=== PATIENT | female | born 1955 | race Hispanic/Latino ===

== ENCOUNTER 2018-12-02 16:11 | Emergency (ER) | payer BC, MEDICARE ==
[~2018-12-02] VITALS: Ht 154.9 cm; Wt 56.7 kg
[~2018-12-02 16:11] MED LIST: ACEBUTOLOL HCL200 MG PO; CALCIUM PO; IMMODIUM PO; LOVASTATIN20 MG PO; OMEGA 3 PO; Z FENOFIBRATE; Z.0.LOPRESSOR50 MG; Z.0.METFORMIN HCL500; Z.0.ZOCOR40 MG; Z.1.LISINOPRIL-HCT1; [UNRECOGNIZED DRUG - OTHER] PO
--- OUTSIDE RECORDS SUMMARY | 2018-12-02 16:14 | XMS REPORT ---
Author Author [facility] Address Unknown Phone Unavailable Care Team Providers Care Telephone Engineer Name Role Phone Unavailable Unavailable Problems This patient has no known problems. Allergies, Adverse Reactions, Alerts This patient has no known allergies or adverse reactions. Medications This patient has no known medications. Encounters Start Date/Time End Date/Time Encounter Type Admission Type Attending [facility] Facility Care Department Encounter ID 2018-08-03 00:00:00 2018-08-03 00:00:00 Outpatient [facility] [id number] 2018-07-27 00:00:00 2018-07-27 00:00:00 Outpatient [facility] [id number] 2018-02-25 09:01:56 2018-02-25 09:01:56 Outpatient [facility] [id number] 2018-02-09 14:26:06 2018-02-09 14:26:06 Outpatient [facility] [id number] 2018-02-09 00:00:00 2018-02-09 00:00:00 Outpatient [facility] [id number] 2018-02-02 00:00:00 2018-02-02 00:00:00 Outpatient [facility] [id number] 2018-02-02 00:00:00 2018-02-02 00:00:00 Outpatient [facility] [id number] 2018-01-29 08:40:30 2018-01-29 08:40:30 Outpatient [facility] [id number] 2018-01-29 08:32:52 2018-01-29 08:32:52 Outpatient [facility] [id number] 2018-01-16 00:00:00 2018-01-16 00:00:00 Outpatient [facility] [id number] 2018-01-15 15:21:09 2018-01-15 15:21:09 Outpatient [facility] [id number] 2017-12-15 00:00:00 2017-12-15 00:00:00 Outpatient [facility] [id number] 2017-11-10 13:41:38 2017-11-10 13:41:38 Outpatient [facility] [id number] 2017-11-10 13:06:06 2017-11-10 13:06:06 Outpatient [facility] [id number] 2017-11-03 00:00:00 2017-11-03 00:00:00 Outpatient [facility] [id number] 2017-10-21 10:11:07 2017-10-21 10:11:07 Outpatient [facility] [id number] 2017-10-13 11:08:36 2017-10-13 11:08:36 Outpatient [facility] [id number] 2017-10-13 00:00:00 2017-10-13 00:00:00 Outpatient [facility] [id number] 2017-09-17 07:56:22 2017-09-17 07:56:22 Outpatient [facility] [id number] 2017-08-04 00:00:00 2017-08-04 00:00:00 Outpatient [facility] [id number] 2017-08-04 00:00:00 2017-08-04 00:00:00 Outpatient [facility] [id number] 2017-06-20 10:49:19 2017-06-20 10:49:19 Outpatient [facility] [id number] 2017-06-10 13:16:09 2017-06-10 13:16:09 Outpatient [facility] [id number] 2017-06-10 11:07:07 2017-06-10 11:07:07 Outpatient [facility] [id number] 2017-06-10 09:26:28 2017-06-10 09:26:28 Outpatient [facility] [id number] 2017-03-05 10:47:42 2017-03-05 10:47:42 Outpatient [facility] [id number] 2017-02-27 14:56:48 2017-02-27 14:56:48 Outpatient [facility] [id number] 2017-02-25 00:00:00 2017-02-25 00:00:00 Outpatient [facility] [id number] 2017-02-21 09:27:51 2017-02-21 09:27:51 Outpatient [facility] [id number] 2017-02-03 13:42:51 2017-02-03 13:42:51 Outpatient [facility] [id number] 2017-02-03 11:42:48 2017-02-03 11:42:48 Outpatient [facility] [id number] 2017-01-22 10:13:04 2017-01-22 10:13:04 Outpatient [facility] [id number] 2017-01-21 15:00:46 2017-01-21 15:00:46 Outpatient [facility] [id number] 2017-01-20 00:00:00 2017-01-20 00:00:00 Outpatient [facility] [id number] 2017-01-15 00:00:00 2017-01-15 00:00:00 Outpatient [facility] [id number] 2017-01-06 00:00:00 2017-01-06 00:00:00 Outpatient [facility] [id number] 2017-01-03 00:00:00 2017-01-03 00:00:00 Outpatient [facility] [id number] 2016-12-25 00:00:00 2016-12-25 00:00:00 Outpatient [facility] [id number] 2016-12-19 09:37:47 2016-12-19 09:37:47 Outpatient [facility] [id number] 2016-12-05 09:49:32 2016-12-05 09:49:32 Outpatient [facility] [id number] 2016-11-21 09:43:14 2016-11-21 09:43:14 Outpatient [facility] [id number] 2016-11-19 13:22:25 2016-11-19 13:22:25 Outpatient [facility] [id number] 2016-11-12 13:42:26 2016-11-12 13:42:26 Outpatient [facility] [id number] 2016-11-06 08:30:13 2016-11-06 08:30:13 Outpatient [facility] [id number] 2016-11-05 10:00:29 2016-11-05 10:00:29 Outpatient [facility] [id number] 2016-10-31 08:50:43 2016-10-31 08:50:43 Outpatient [facility] [id number] 2016-10-24 13:21:02 2016-10-24 13:21:02 Outpatient [facility] [id number] 2016-10-23 15:09:57 2016-10-23 15:09:57 Outpatient [facility] [id number] 2016-10-23 13:57:05 2016-10-23 13:57:05 Outpatient [facility] [id number] 2016-10-07 18:21:52 2016-10-07 18:21:52 Emergency [facility] [id number] 2016-10-07 00:00:00 2016-10-07 00:00:00 Outpatient [facility] [id number] 2016-07-26 10:03:50 2016-07-26 10:03:50 Outpatient [facility] [id number] 2016-07-26 08:40:02 2016-07-26 08:40:02 Outpatient [facility] [id number] 2016-07-15 10:39:25 2016-07-15 10:39:25 Emergency [facility] [id number] 2016-07-02 13:00:51 2016-07-02 13:00:51 Outpatient [facility] [id number] 2016-07-02 10:19:21 2016-07-02 10:19:21 Outpatient [facility] [id number] 2016-07-02 09:24:48 2016-07-02 09:24:48 Outpatient [facility] [id number]
[2018-12-02] MEDS ORDERED: ASPIRIN 81 MG CHEW TAB PO ONE (18:00)
--- NOTE | 2018-12-02 18:32 | Diagnostic Imaging Report ---
EXAMINATION: CHEST SINGLE (NOT PORTABLE) INDICATION: ^ERMD ORDER ^[id number] ^1818 ^Y COMPARISON: 08/16/2007 FINDINGS: AP view TUBES and LINES: None. LUNGS: Lungs are well inflated. Lungs are clear. There is no evidence of pneumonia or pulmonary edema. PLEURA: No pleural effusion or pneumothorax. HEART AND MEDIASTINUM: The cardiomediastinal silhouette is unremarkable. BONES AND SOFT TISSUES: No acute osseous lesion. Soft tissues are unremarkable. UPPER ABDOMEN: No free air under the diaphragm. IMPRESSION: No acute thoracic abnormality. Signed by: Dr. Kenneth Madden MD on 12/02/2018 6:29 PM
[2018-12-02 18:46] LABS: BASOPHILS % 0.6 % (0.0-1.0); EOSINOPHILS # (AUTO) 0.3 (0.0-0.4); HEMATOCRIT 36.7 % (34.2-44.1); HEMOGLOBIN 12.2 g/dL (12.0-16.0); LYMPHOCYTES # (AUTO) 1.1 (1.0-3.2); LYMPHOCYTES % 22.9 % (18.0-39.1); MEAN CORPUSCULAR HGB CONC 33.2 g/dL (31-35); MEAN CORPUSCULAR VOLUME 93.1 fL (81-99); MONOCYTES # (AUTO) 0.5 (0.2-0.8); MONOCYTES % 10.3 % (4.4-11.3); NEUTROPHILS # (AUTO) 2.8 (2.1-6.9); NEUTROPHILS % 59.6 % (38.7-80.0); PLATELET COUNT 265 x10e3/uL (140-360); RED BLOOD COUNT 3.94 x10e6/uL (3.6-5.1); RED CELL DISTRIBUTION WIDTH 12.4 % (11.7-14.4)
[2018-12-02 18:52] LABS: BILIRUBIN,URINE NEGATIVE (NEGATIVE); CLARITY,URINE SL CLOUDY (CLEAR); COLOR,URINE YELLOW (YELLOW); KETONES,URINE NEGATIVE (NEGATIVE); LEUKOCYTE ESTERASE ,URINE TRACE (NEGATIVE); NITRITE,URINE NEGATIVE (NEGATIVE); PROTEIN,URINE DIPSTICK NEGATIVE (NEGATIVE); URINE UROBILINOGEN 0.2 mg/dL (0.2 - 1)
[2018-12-02 18:54] LABS: INR 0.93
[2018-12-02 18:55] LABS: PARTIAL THROMBOPLASTIN TIME 31.6 seconds (23.8-35.5)
[2018-12-02 19:02] LABS: ALANINE AMINOTRANSFERASE 55 IU/L (0-55); ALBUMIN/GLOBULIN RATIO 1.3 (0.8-2.0); ALKALINE PHOSPHATASE 48 IU/L (40-150); BLOOD UREA NITROGEN 19 mg/dL (7-26); BUN/CREATININE RATIO 23 (6-25); CALCIUM 9.7 mg/dL (8.4-10.2); CARBON DIOXIDE 21 mmol/L (22-29); CHLORIDE 104 mmol/L (98-107); CREATINE KINASE 57 IU/L (29-168); CREATININE, SERUM 0.81 mg/dL (0.57-1.11); EST GLOMERULAR FILTRATION RATE > 60 ML/MIN (60-); GLUCOSE 104 mg/dL (74-118); SODIUM 138 mmol/L (136-145)
[2018-12-02 19:03] LABS: WBC,URINE (MAN) 0-5 /HPF (0-5)
[2018-12-02 19:04] LABS: BACTERIA,URINE RARE /HPF; EPITHELIAL CELLS,URINE RARE /LPF
[2018-12-02 20:44] LABS: CREATINE KINASE MB 0.8 ng/mL (0-5.0)
[2018-12-02 21:48] VITALS: BP 107/81
== END 2018-12-02 21:50 | disposition home or self-care (01) ==
LOC: ER 16:11
DX: R07.89 Other chest pain (principal); I10 Essential (primary) hypertension; E11.9 Type 2 diabetes mellitus without complications; K21.9 Gastro-esophageal reflux disease without esophagitis; E78.5 Hyperlipidemia, unspecified; Z79.84 Long term (current) use of oral hypoglycemic drugs
CPT/HCPCS: 36415; 71045; 80053; 81001; 82550; 82553; 84484; 85025; 85610; 85730; 87086; 93005; 99284

== ENCOUNTER 2020-02-07 12:22 | Emergency (ER) | payer MEDICARE ==
[~2020-02-07] VITALS: Ht 154.9 cm; Wt 59.0 kg
[2020-02-07] MEDS ORDERED: DONNATAL/LIDOCAINE/MAALOX 30 ML SUSP PO ONE (13:00)
[2020-02-07] MEDS ORDERED: PANTOPRAZOLE 40 MG 10ML VIAL IV STA (13:00)
[2020-02-07 13:11] LABS: BASOPHILS # (AUTO) 0.1 (0.0-0.1); BASOPHILS % 1.1 % (0.0-1.0); EOSINOPHILS # (AUTO) 0.3 (0.0-0.4); EOSINOPHILS % 5.3 % (0.0-6.0); HEMOGLOBIN 12.2 g/dL (12.0-16.0); LYMPHOCYTES # (AUTO) 1.4 (1.0-3.2); LYMPHOCYTES % 29.6 % (18.0-39.1); MEAN CORPUSCULAR HEMOGLOBIN 29.9 pg (28-32); MEAN CORPUSCULAR VOLUME 90.7 fL (81-99); MONOCYTES # (AUTO) 0.4 (0.2-0.8); NEUTROPHILS # (AUTO) 2.6 (2.1-6.9); NEUTROPHILS % 54.9 % (38.7-80.0); PLATELET COUNT 232 x10e3/uL (140-360); RED BLOOD COUNT 4.08 x10e6/uL (3.6-5.1); RED CELL DISTRIBUTION WIDTH 12.6 % (11.7-14.4)
[2020-02-07 13:30] LABS: ALANINE AMINOTRANSFERASE 18 IU/L (0-55); ALBUMIN/GLOBULIN RATIO 1.1 (0.8-2.0); ALKALINE PHOSPHATASE 99 IU/L (40-150); ANION GAP 18.1 mmol/L (8-16); BLOOD UREA NITROGEN 14 mg/dL (7-26); BUN/CREATININE RATIO 19 (6-25); CALCIUM 9.6 mg/dL (8.4-10.2); CARBON DIOXIDE 21 mmol/L (22-29); CHLORIDE 103 mmol/L (98-107); CREATINE KINASE 56 IU/L (29-168); CREATININE, SERUM 0.75 mg/dL (0.57-1.11); EST GLOMERULAR FILTRATION RATE > 60 ML/MIN (60-); GLUCOSE 120 mg/dL (74-118); POTASSIUM 4.1 mmol/L (3.5-5.1); SODIUM 138 mmol/L (136-145)
--- NOTE | 2020-02-07 13:30 | Diagnostic Imaging Report ---
Chest, 1 view, 02/07/2020. History: Chest pain. Comparison: 12/02/2018. Findings: The cardiomediastinal silhouette and pulmonary vasculature are within normal limits for a portable exam. There is no focal consolidation or pleural effusion. There are no acute osseous or soft tissue abnormalities. Impression: No acute cardiopulmonary abnormality. Signed by: Jonathan Barragan on 02/07/2020 1:26 PM
--- OUTSIDE RECORDS SUMMARY | 2020-02-07 14:18 | XMS REPORT | Continuity of Care Document ---
Author Author [facility] t Organization [facility] Address [address] [place] [address] Phone Unavailable Care Team Providers Care Blue Line Trimmer Name Role Phone NONSTAFF PCP Unavailable Zuhair ELIZONDO Attphys Unavailable Ching PELLETIER Attphys Unavailable Carlos Enrique HAM, Michael Attphys Unavailable Chirag HAWK, Siddhartha Cornejo Attphys Quiana Cota DO Attphys Kodak ORTIZ, Lucretia Farias Attphys Unavail able Alex HAM, Sandeep Attphys Unavailable Felicity HAWK, Ellie Attphys Christine QUICK Attphys Unavailable Payers Payer Name Policy Type Policy Number Effective Date Expiration Date S george MEDICAREMEDICARE PART A & [id number].[address], [place] [address] xxxxxxxxxxx 2018 00:00:00 [facility] [id number] SCREENEDxxxxxx12/25 //[id number] [place] [address] xxxxxx 2019 00:00:00 2020 2 3:59:59 [facility] Medicare A & B [id number] 2018 00:00:00 [facility] Problems Condition Name Condition Details Condition Category Status Onset Date Resolution Date Last Treatment Date Treating Clinician Comments Source Anemia Anemia Disease Active 2017-11-10 00:00:00 [facility] Sinus arrhythmia - w/ premature QRS - started on by outside doctor Sinus arrhythmia - w/ premature QRS - started on 02/2017 by outside doctor Disease Active 2017-06-10 00:00:00 [facility] Financial difficulties - not wor shadia, taking care of son's Ex GF's baby (CPS was gonna take the child) Financial difficulties - not wor shadia, taking care of son's Ex GF's baby (CPS was gonna take the child) Disease Active 2017-06-10 00:00:00 [facility] Cellulitis of antecubital fossa - lt w/ superficial thrombophlebitis and thrombosis, stap + bcx s/p IP nafciillin 2 wks, levolflox po 4 wks started 01/11 , TTE no vegetation, see [facility] records Cellulitis of antecubital fossa - lt w/ superficial thrombophlebitis and thrombosis, stap + bcx s/p IP nafciillin 2 wks, levolflox po 4 wks started 01/11 , TTE no vegetation, see [facility] records Disease Active 2017-01-21 00:00:00 [facility] Impaired mobility and ADLs Impaired mobility and ADLs Disease Active 2016-11-12 00:00:00 [facility] Chronic right shoulder pain Chronic right shoulder pain Disease Active 2016-11-12 00:00:00 [facility] Pain aggravated by lifting Pain aggravated by lifting Disease Active 2016-11-12 00:00:00 [facility] Esophageal dysmotilities - Esophageal motility test or dered Esophageal dysmotilities - Esophageal motility test ordered Disease Active 2016-11-05 00:00:00 [facility] Anxiety Anxiety Disease Active 2016-10-07 00:00:00 [facility] Osteopenia Osteopenia Disease Active 2016-08-16 00:00:00 [facility] Borderline diabetes Borderline diabetes Disease Active 2016-08-04 00:00 :00 [facility] Pain in joint of right shoulder- started 30 yrs back - increasing ; was working prev housekeeping , severe DJD on MRI Pain in joint of right shoulder- started 30 yrs back - increasing ; was working prev housekeeping , severe DJD on MRI Disease Active 2016-07-02 00:00:00 [facility] 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- seeing Heme lik paulino MDS Disease Active 2016-03-12 00:00:00 [facility] S/P colonoscopy - showed active colitis (infection ruled out) missed GI aleksander asked to make again S/P colonoscopy - showed active colitis (infection ruled out) missed GI aleksander asked to make again Disease Active 2015-11-13 00:00:00 [facility] Chronic pancreatitis Chronic pancreatitis Disease Active 00:00:00 [facility] Essential hypertension, benign Essential hypertension, benign Disea se Active 2015-05-23 00:00:00 [facility] Pap smear of cervix not needed s/p hysterectomy Pap sm ear of cervix not needed s/p hysterectomy Disease Active 2015-05-23 00:00:00 [facility] Abnormal EKG - sinus arrythmia and briana ture QRS transition in precordial leads thats why on BB as per pt Abnormal EKG - sinus arrythmia and briana ture QRS transition in precordial leads thats why on BB as per pt Disease Ac tive 2015-05-23 00:00:00 [facility] H/O colonoscopy with polypectomy 4 polpy s removed 1 precancerous repeated 2015 repeat in 10yrs H/O colonoscopy with polypectomy 4 polpy s removed 1 precancerous repeated 2015 repeat in 10yrs Disease Active 2009-05-23 00:00:00 [facility] Hypertriglyceridemia Hypertriglyceridemia Disease Active 00:00:00 [facility] Macrocytosis- low B12 Macrocytosis- low B12 Disease Active 200 10-04-06 00:00:00 [facility] Gastroesophageal reflux disease without esophagitis Ga stroesophageal reflux disease without esophagitis Disease Active [facility] Allergies, Adverse Reactions, Alerts Allergy Name Allergy Type Status Severity Reaction(s) Onset Date Inacti ve Date Treating Clinician Comments Source Clofibrate Propensity to adverse reactions to drug Active 2006-01-02 00:00:00 [facility] Family History Family Member Diagnosis Comments Start Date Stop Date Source Natural father Arthritis [facility] Natural father Heart [facility] Natural father Hypertension [facility] Maternal grandfather [facility] Maternal grandfather Hypert[facility] Maternal grandmother Diabetes [facility] Maternal grandmother Heart [facility] Maternal grandmother Hypertension [facility] Natural mother Cancer [facility] Natural mother Diabetes [facility] Natural mother Hypertension [facility] Paternal grandfather Unknown Fam Hx [facility] Paternal grandmother Unknown Fam Hx [facility] Natural sister Arthritis [facility] Natural sister Hy[facility] Social History Social Habit Start Date Stop Date Quantity Comments Source Tobacco Comment D/C @ age 19yrs [facility] Alcohol Comment occassionally [facility] Sex Assigned At [facility] Alcohol intake 2019-11-09 00:00:00 2019-11-09 00:00:00 Current drinker of alcohol (finding) [facility] History SDOH Food Worry 2018-01-15 00:00:00 2018-01-15 00:00:00 1 [facility] History SDOH Food Scarcity 2018-01-15 00:00:00 2018-01-15 00:00:00 1 [facility] Smoking Status Start Date Stop Date Source Former smoker 2019-11-09 00:00:00 2019-11-09 00:00:00 [facility] Medications Ordered Medication Name Filled Medication Name Start Date Stop Da te Current Medication? Ordering Clinician Indication Dosage Frequency Signature (SIG) Comments Components Source omeprazole (PRILOSEC) 20 mg delayed release capsule 01-04 00:00:00 Yes Gastroesophageal reflux disease without esophagitis 20mg QD Take 1 capsule by mouth daily. [facility] lisinopriL-hydrochlorothiazide (PRINZIDE, ZESTORETIC) 20-12. 5 mg per tablet 2019-11-10 00:00:00 Yes Essential hypertension, benign 1{tbl} QD Take 1 tablet by mouth daily. [facility] metFORMIN (GLUCOPHAGE) 500 mg tablet 2019-11-10 00:00:00 Yes Borderline diabetes 500mg QD Take 1 tablet by mouth daily (with breakfast). [facility] atorvastatin (LIPITOR) 40 mg tablet 2019-11-09 00:00:00 Yes Hypertriglyceridemia 40mg Take 1 tablet by mouth at bedtime nig htly. [facility] tropicamide (MYDRIACYL) 0.5 % ophthalmic solution 2019-11-09 00:00:00 2020-05-07 23:59:00 Yes Type 2 diabetes barbara itus without complication, without long-term current use of insulin 1[drp] Instill 1 Drop in each eye once as needed for up to 1 dose (for poor retina scan image). [facility] ketoconazole (NIZORAL) 2 % shampoo 2019-11-01 00:00:00 Yes Medication refill Wash hair three time a week. [facility] blood glucose test strips 2019-09-23 00:00:00 Yes Type 2 diabetes mellitus without complication, without long-term current use of insulin Check blood glucose 2 times weekly [facility] omeprazole (PRILOSEC) 20 mg delayed release capsule 2019-08-10 00:00:00 2020-01-04 00:00:00 No Gastroesophageal reflux dise ase without esophagitis 20mg QD Take 1 capsule by mouth daily. [facility] methocarbamoL (ROBAXIN-750) 750 mg tablet 2019-05-11 00:00:0 0 Yes Bilateral leg cramps 750mg Take 1 tablet by mo ut 3 times daily as needed (cramps). [facility] methocarbamol (ROBAXIN-750) 750 mg tablet 05-11 00:00:00 2019-05-11 00:00:00 No Bilateral leg cramps 750mg Take 1 tablet by mouth 3 times daily as needed for Pain. [facility] ergocalciferol (VITAMIN D2) 1,250 mcg (50,000 unit) capsule 2019-05-05 00:00:00 Yes Vitamin D deficiency 20696W Take 1 cap katharine by mouth weekly. [facility] metFORMIN (GLUCOPHAGE) 500 mg tablet 2019-05-03 00:00: 00 2019-11-10 00:00:00 No Borderline diabetes 500mg QD Take 1 t ablet by mouth daily (with breakfast). [facility] atorvastatin (LIPITOR) 20 mg tablet 2019-05-03 00:00:0 0 2019-11-09 00:00:00 No Hypertriglyceridemia 20mg Take 1 tablet by mouth at b edtime nightly. [facility] lisinopriL-hydrochlorothiazide (PRINZIDE, ZESTORETIC) 20-12. 5 mg per tablet 2019-05-03 00:00:00 2019-11-09 00:00:00 No Essential hype rtension, benign 1{tbl} QD Take 1 tablet by mouth daily. [facility] triamcinolone acetonide (KENALOG-40) injection 40 mg 2019-03-12 14:15:00 2019-03-12 14:03:00 No Chronic right shoulder pain 40mg [facility] lidocaine 1 % (XYLOCAINE) injection 4 mL 2019-02 14:15:00 2019-03-12 14:03:00 No Chronic right shoulder pain 4mL [facility] ketoconazole (NIZORAL) 2 % shampoo 2018-10-23 00:00:00 202 00:00:00 No Medication refill Wash hair three time a week. [facility] metFORMIN (GLUCOPHAGE) 500 mg tablet 2018-10-09 00:00: 00 2019-05-03 00:00:00 No Borderline diabetes 500mg QD Take 1 t ablet by mouth daily (with breakfast). [facility] atorvastatin (LIPITOR) 20 mg tablet 2018-10-09 00:00:0 0 2019-05-03 00:00:00 No Hypertriglyceridemia 20mg Take 1 tablet by mouth at b edtime nightly. [facility] lisinopril-hydrochlorothiazide (PRINZIDE, ZESTORETIC) 20-12. 5 mg per tablet 2018-10-09 00:00:00 2019-05-03 00:00:00 No Essential hype rtension, benign 1{tbl} QD Take 1 tablet by mouth daily. [facility] omeprazole (PRILOSEC) 20 mg delayed release capsule 2018-10-09 00:00:00 2019-05-03 00:00:00 No Hiatal hernia with GERD and esophagiti s 20mg QD Take 1 capsule by mouth daily. [facility] acebutolol (SECTRAL) 200 mg capsule 2018-08-04 00:00:0 0 2019-05-03 00:00:00 No Abnormal EKG 200mg QD Take 1 capsule by mouth daily. [facility] acetaminophen-codeine (TYLENOL/CODEINE #3) 300-30 mg per tab let 2018-06-05 00:00:00 2019-05-03 00:00:00 No Incomplete tear of right ro tator cuff 1{tbl} Take 1 tablet by mouth every 6 hours as needed for Pain. [facility] sucralfate (CARAFATE) 100 mg/mL oral suspension 2018-01-15 00:00:00 2019-05-03 00:00:00 No Hiatal hernia with GERD and esophagitis 1000mg Take 10 mL by mouth 4 times daily. [facility] fluocinonide (LIDEX) 0.05 % external solution 20 13-10-17 00:00:00 2019-05-03 00:00:00 No Seborrheic dermatitis Q.5D Aleksander ly to affected area 2 times daily. [facility] ketoconazole (NIZORAL) 2 % topical cream 2017-09 00:00:00 2019-05-03 00:00:00 No Seborrheic dermatitis QD Apply to affected area daily. [facility] lancets 28 gauge 2017-02-27 00:00:00 Yes Type 2 diabetes mellitus without complication, without long-term current use of insulin Use 2 times weekly as directed. [facility] blood glucose test strips 2017-02-27 00:00:00 2019-09-22 00: 00:00 No Type 2 diabetes mellitus without complication, without long-term current use of insulin Check blood glucose 2 times weekly [facility] ergocalciferol (VITAMIN D2) 50,000 unit capsule 2016-10-24 00:00:00 2019-05-03 00:00:00 No Vitamin D deficiency 36784E Take 1 capsule by mouth weekly. [facility] mometasone (NASONEX) 50 mcg/actuation nasal spray 2016-02-13 00:00:00 2019-05-03 00:00:00 No Seasonal allergic rh initis, unspecified allergic rhinitis trigger 2{spray} QD Use 2 sprays in each nostril daily. [facility] blood glucose meter 2015-05-23 00:00:00 Yes Predi abetes Use as directed.. [facility] Acebutolol Hcl 200 Mg Capsule Acebutolol Hcl 200 Mg Capsule Yes 200 Daily [facility] Calcium Calcium Yes 600 Daily [facility] Fenofibrate,Micronized (Fenofibrate) 67 Mg Capsule Fen ofibrate,Micronized (Fenofibrate) 67 Mg Capsule Yes 160 Daily [facility] Lisinopril/Hydrochlorothiazide (Lisinopril-Hctz 20-12. 5 Mg Tab) 1 Each Tablet Lisinopril/Hydrochlorothiazide (Lisinopril-Hctz 20-12.5 Mg Tab) 1 Each Tablet Yes 20 Daily [facility] Lovastatin 20 Mg Tablet Lovastatin 20 Mg Tablet Yes 20 Daily [facility] Metformin Hcl (Metformin Hcl Er) 500 Mg Tab.sr.24h Met formin Hcl (Metformin Hcl Er) 500 Mg Tab.sr.24h Yes Twice A Day [facility] Nitamin B 12 Nitamin B 12 Yes [facility] Cullom 3 Cullom 3 Yes [facility] Immodium , Oral Immodium , Oral 2015-02-15 00:00:00 No As Needed [facility]ol Tartrate (Lopressor) 50 Mg Tablet, Metoprol ol Tartrate (Lopressor) 50 Mg Tablet, 2015-02-15 00:00:00 No Twice A Day [facility] Simvastatin (Zocor) 40 Mg Tablet, Simvastatin (Zocor) 40 Mg Tabl et, 2015-02-14 00:00:00 No Daily [facility] Immunizations Ordered Immunization Name Filled Immunization Name Date Status Comments Source Tdap (Tetanus Toxoid, Reduced Diphtheria Toxoid And Acellular Pertussis, Absorbed) 2019-05-03 00:00:00 Completed [facility] Influenza, Injectable, Quadrivalent 2019-05-03 00:00:00 Co mpleted [facility] Influenza, Vaccine <FLUCELVAX>(Preservative-Free) 2018-02-09 00:00:00 Completed [facility] Influenza Vaccine, Seasonal, Injectable 2017-02-27 00:00:0 0 Completed [facility] Influenza Vaccine 2016-02-13 00:00:00 Completed [facility] Influenza Vaccine 2015-05-23 00:00:00 Completed [facility] PNEUMOCOCCAL 23-VALPS VACCINE 25 MCG/0.5 ML INJECTION 2015-05-23 00:00:00 [facility] Vital Signs Vital Name Observation Time Observation Value Comments Source Systolic blood pressure 2019-05-11 07:44:00 122 mm[Hg] [facility] Diastolic blood pressure 2019-05-11 07:44:00 78 mm[Hg] [facility] Heart rate 2019-05-11 07:44:00 90 /min [facility] Body temperature 2019-05-11 07:44:00 36.56 Glenda [facility] Body height 2019-05-11 07:44:00 154.9 cm [facility] Body weight 2019-05-11 07:44:00 57.607 kg [facility] BMI 2019-05-11 07:44:00 24.00 kg/m2 [facility] Respiratory rate 2019-05-03 07:54:00 18 /min [facility] Procedures Procedure Date / Time Performed Performing Clinician Sourc e ELECTROLYTES 2019-11-29 09:13:00 PelletierBladimir romo [facility] GLUCOSE 2019-11-29 09:13:00 PelletierBladimir romo [facility] LIPID PROFILE 2019-11-29 09:13:00 PelletierBladimir romo [facility] ALANINE AMINOTRASFERASE/ASPARTATE AMINOTRANSFERASE (AL T/AST) 2019-11-29 09:13:00 Bladimir Pelletier [facility] UREA NITROGEN/CREATININE 2019-11-29 09:13:00 Bladimir Pelletier [facility] HEMOGLOBIN A1C 2019-11-29 09:13:00 PelletierBladimir romo [facility] ELECTROLYTES 2019-10-28 09:24:00 PelletierBladimir romo [facility] GLUCOSE 2019-10-28 09:24:00 PelletierBladimir romo [facility] LIPID PROFILE 2019-10-28 09:24:00 PelletierBladimir romo [facility] ALANINE AMINOTRASFERASE/ASPARTATE AMINOTRANSFERASE (AL T/AST) 2019-10-28 09:24:00 PelletierBladimir romo [facility] UREA NITROGEN/CREATININE 2019-10-28 09:24:00 PelletierBladimir romo [facility] HEMOGLOBIN A1C 2019-10-28 09:24:00 Bladimir Pelletier [facility] XRAY HAND 3 VIEWS MIN 2019-08-10 13:15:00 PelletierBladimir romo [facility] XRAY SHOULDER 2 VIEWS MIN 2019-08-10 13:15:00 Bladimir Pelletier [facility] CALCIUM 2019-08-05 07:56:00 Bladimir Pelletier [facility] VIT D, 25-HYDROXY 2019-08-05 07:56:00 PelletierBladimir romo [facility] ALANINE AMINOTRASFERASE/ASPARTATE AMINOTRANSFERASE (AL T/AST) 2019-08-05 07:56:00 PelletierBladimir romo [facility] LIPID PROFILE 2019-08-05 07:56:00 Bladimir Pelletier [facility] MAMMOGRAM BILAT SCREEN DIGITAL 2019-07-02 12:07:25 Rd Pelletier [facility] FERRITIN 2019-05-03 09:06:00 Bladimir Pelletier [facility] FOLIC ACID 2019-05-03 09:06:00 Bladimir Pelletier [facility] FREE T4 2019-05-03 09:06:00 Bladimir Pelletier [facility] THYROID STIMULATING HORMONE (TSH) 2019-05-03 09:06:00 Mikayla Pelletier omas [facility] VITAMIN B12 2019-05-03 09:06:00 Bladimir Pelletier [facility] IRON PROFILE 2019-05-03 09:06:00 Bladimir Pelletier [facility] CBC/DIFF 2019-05-03 09:06:00 Bladimir Pelletier [facility] ELECTROLYTES 2019-05-03 09:06:00 Bladimir Pelletier [facility] GLUCOSE 2019-05-03 09:06:00 Bladimir Pelletier [facility] LIPID PROFILE 2019-05-03 09:06:00 Bladimir Pelletier [facility] ALANINE AMINOTRASFERASE/ASPARTATE AMINOTRANSFERASE (AL T/AST) 2019-05-03 09:06:00 Bladimir Pelletier [facility] UREA NITROGEN/CREATININE 2019-05-03 09:06:00 Bladimir Pelletier [facility] HEMOGLOBIN A1C 2019-05-03 09:06:00 Bladimir Pelletier [facility] MICROALBUMIN / CREATININE URINE RATIO 2019-05-03 09:06:00 Bladimir Pelletier [facility] CBC 2019-05-03 09:06:00 Bladimir Pelletier [facility] VIT D, 25-HYDROXY 2019-05-03 09:06:00 Bladimir Pelletier [facility] X-ray of chest, single view 2018-12-02 00:00:00 JONATHAN COVARRUBIAS [facility] Plan of Care Planned Activity Planned Date Details Comments Source Future Scheduled Test 2025-11-05 00:00:00 Screening for frances gnant neoplasm of colon (procedure) [code = 916897312] [facility] Scheduled Test 2020-11-28 00:00:00 Hemoglobin A1c lefty surement (procedure) [code = 13894418] [facility] Scheduled Test 2020-07-01 00:00:00 Breast Cancer Scrn (Yearly) [code = Breast Cancer Scrn (Yearly)] [facility] Scheduled Test 2019-06-05 00:00:00 DM Foot Exam (Year ly) [code = DM Foot Exam (Yearly)] [facility] Scheduled Test 2019-06-05 00:00:00 DM Retinal Exam (Y early) [code = DM Retinal Exam (Yearly)] [facility] Encounters Start Date/Time End Date/Time Encounter Type Admission Type [facility] Care Department Encounter ID Source 2020-01-04 00:00:00 2020-01-04 00:00:[address] PELLETIER [facility] [id number] [facility] 2019-11-29 09:12:44 2019-11-29 09:13:[address] PELLETIER [facility] [id number] [facility] 2019-11-29 00:00:00 2019-11-29 00:00:00 Outpatient [facility] [id number] [facility] 2019-11-29 00:00:00 2019-11-29 00:00:[address] PELLETIER [facility] [id number] [facility] 2019-11-16 00:00:00 2019-11-16 00:00:00 Outpatient [facility] [id number] [facility] 2019-11-09 07:27:48 2019-11-09 07:27:48 Outpatient [facility] [id number] [facility] 2019-10-28 09:24:17 2019-10-28 09:24:17 Outpatient [facility] [id number] [facility] 2019-10-28 00:00:00 2019-10-28 00:00:00 Outpatient [facility] [id number] [facility] 2019-10-11 00:00:00 2019-10-11 00:00:00 Outpatient [facility] [id number] [facility] 2019-08-10 12:55:51 2019-08-10 12:55:51 Outpatient [facility] [id number] [facility] 2019-08-10 07:30:56 2019-08-10 07:30:56 Outpatient [facility] [id number] [facility] 2019-08-05 07:55:36 2019-08-05 07:55:36 Outpatient [facility] [id number] [facility] 2019-08-05 00:00:00 2019-08-05 00:00:00 Outpatient [facility] [id number] [facility] 2019-07-02 13:07:27 2019-07-02 13:07:27 Outpatient [facility] [id number] [facility] 2019-07-02 10:59:28 2019-07-02 10:59:28 Outpatient [facility] [id number] [facility] 2019-05-31 00:00:00 2019-05-31 00:00:00 Outpatient [facility] [id number] [facility] 2019-05-11 07:43:50 2019-05-11 07:43:50 Outpatient [facility] [id number] [facility] 2019-05-03 09:06:05 2019-05-03 09:06:05 Outpatient [facility] [id number] [facility] 2019-05-03 07:53:56 2019-05-03 07:53:56 Outpatient [facility] [id number] [facility] 2019-05-03 00:00:00 2019-05-03 00:00:00 Outpatient [facility] [id number] [facility] 2019-04-13 00:00:00 2019-04-13 00:00:00 Outpatient [facility] [id number] [facility] 2019-03-12 13:21:14 2019-03-12 13:21:14 Outpatient [facility] [id number] [facility] 2019-03-10 00:00:00 2019-03-10 00:00:00 Outpatient [facility] [id number] [facility] 2019-02-01 13:41:27 2019-02-01 13:41:27 Outpatient [facility] [id number] [facility] 2019-01-22 08:24:39 2019-01-22 08:24:39 Outpatient [facility] [id number] [facility] 2019-01-22 00:00:00 2019-01-22 00:00:00 Outpatient [facility] [id number] [facility] 2019-01-06 14:12:00 2019-01-06 14:12:00 Outpatient [facility] [id number] [facility] 2019-01-06 13:19:37 2019-01-06 13:19:37 Outpatient [facility] [id number] [facility] 2019-01-06 00:00:00 2019-01-06 00:00:00 Outpatient [facility] [id number] [facility] 2018-12-02 16:11:00 2018-12-02 21:50:00 Departed Emergency Room 1 ANTOINE QUICK [facility] [id number] [facility] 2018-10-09 08:02:43 2018-10-09 08:02:43 Outpatient [facility] [id number] [facility] 2018-08-03 00:00:00 2018-08-03 00:00:00 Outpatient [facility] [id number] [facility] 2018-07-27 00:00:00 2018-07-27 00:00:00 Outpatient [facility] [id number] [facility] 2018-02-25 09:01:56 2018-02-25 09:01:56 Outpatient [facility] [id number] [facility] 2018-02-09 14:26:06 2018-02-09 14:26:06 Outpatient [facility] [id number] [facility] 2018-02-09 00:00:00 2018-02-09 00:00:00 Outpatient [facility] [id number] [facility] 2018-02-02 00:00:00 2018-02-02 00:00:00 Outpatient [facility] [id number] [facility] 2018-02-02 00:00:00 2018-02-02 00:00:00 Outpatient [facility] [id number] [facility] 2018-01-29 08:40:30 2018-01-29 08:40:30 Outpatient [facility] [id number] [facility] 2018-01-29 08:32:52 2018-01-29 08:32:52 Outpatient [facility] [id number] [facility] 2018-01-16 00:00:00 2018-01-16 00:00:00 Outpatient [facility] [id number] [facility] 2018-01-15 15:21:09 2018-01-15 15:21:09 Outpatient [facility] [id number] [facility] 2017-12-15 00:00:00 2017-12-15 00:00:00 Outpatient [facility] [id number] [facility] 2017-11-10 13:41:38 2017-11-10 13:41:38 Outpatient [facility] [id number] [facility] 2017-11-10 13:06:06 2017-11-10 13:06:06 Outpatient [facility] [id number] [facility] 2017-11-03 00:00:00 2017-11-03 00:00:00 Outpatient [facility] [id number] [facility] 2017-10-21 10:11:07 2017-10-21 10:11:07 Outpatient [facility] [id number] [facility] 2017-10-13 11:08:36 2017-10-13 11:08:36 Outpatient [facility] [id number] [facility] 2017-10-13 00:00:00 2017-10-13 00:00:00 Outpatient [facility] [id number] [facility] 2017-09-17 07:56:22 2017-09-17 07:56:22 Outpatient [facility] [id number] [facility] 2017-08-04 00:00:00 2017-08-04 00:00:00 Outpatient [facility] [id number] [facility] 2017-08-04 00:00:00 2017-08-04 00:00:00 Outpatient [facility] [id number] [facility] 2017-06-20 10:49:19 2017-06-20 10:49:19 Outpatient [facility] [id number] [facility] 2017-06-10 13:16:09 2017-06-10 13:16:09 Outpatient [facility] [id number] [facility] 2017-06-10 11:07:07 2017-06-10 11:07:07 Outpatient [facility] [id number] [facility] 2017-06-10 09:26:28 2017-06-10 09:26:28 Outpatient [facility] [id number] [facility] 2017-03-05 10:47:42 2017-03-05 10:47:42 Outpatient [facility] [id number] [facility] 2017-02-27 14:56:48 2017-02-27 14:56:48 Outpatient [facility] [id number] [facility] 2017-02-25 00:00:00 2017-02-25 00:00:00 Outpatient [facility] [id number] [facility] 2017-02-21 09:27:51 2017-02-21 09:27:51 Outpatient [facility] [id number] [facility] 2017-02-03 13:42:51 2017-02-03 13:42:51 Outpatient [facility] [id number] [facility] 2017-02-03 11:42:48 2017-02-03 11:42:48 Outpatient [facility] [id number] [facility] 2017-01-22 10:13:04 2017-01-22 10:13:04 Outpatient [facility] [id number] [facility] 2017-01-21 15:00:46 2017-01-21 15:00:46 Outpatient [facility] [id number] [facility] 2017-01-20 00:00:00 2017-01-20 00:00:00 Outpatient [facility] [id number] [facility] 2017-01-15 00:00:00 2017-01-15 00:00:00 Outpatient [facility] [id number] [facility] 2017-01-06 00:00:00 2017-01-06 00:00:00 Outpatient [facility] [id number] [facility] 2017-01-03 00:00:00 2017-01-03 00:00:00 Outpatient [facility] [id number] [facility] 2016-12-25 00:00:00 2016-12-25 00:00:00 Outpatient [facility] [id number] [facility] 2016-12-19 09:37:47 2016-12-19 09:37:47 Outpatient [facility] [id number] [facility] 2016-12-05 09:49:32 2016-12-05 09:49:32 Outpatient [facility] [id number] [facility] 2016-11-21 09:43:14 2016-11-21 09:43:14 Outpatient [facility] [id number] [facility] 2016-11-19 13:22:25 2016-11-19 13:22:25 Outpatient [facility] [id number] [facility] 2016-11-12 13:42:26 2016-11-12 13:42:26 Outpatient [facility] [id number] [facility] 2016-11-06 08:30:13 2016-11-06 08:30:13 Outpatient [facility] [id number] [facility] 2016-11-05 10:00:29 2016-11-05 10:00:29 Outpatient [facility] [id number] [facility] 2016-10-31 08:50:43 2016-10-31 08:50:43 Outpatient [facility] [id number] [facility] 2016-10-24 13:21:02 2016-10-24 13:21:02 Outpatient [facility] [id number] [facility] 2016-10-23 15:09:57 2016-10-23 15:09:57 Outpatient [facility] [id number] [facility] 2016-10-23 13:57:05 2016-10-23 13:57:05 Outpatient [facility] [id number] [facility] 2016-10-07 18:21:52 2016-10-07 18:21:52 Emergency [facility] [id number] [facility] 2016-10-07 00:00:00 2016-10-07 00:00:00 Outpatient [facility] [id number] [facility] 2016-07-26 10:03:50 2016-07-26 10:03:50 Outpatient [facility] [id number] [facility] 2016-07-26 08:40:02 2016-07-26 08:40:02 Outpatient [facility] [id number] [facility] 2016-07-15 10:39:25 2016-07-15 10:39:25 Emergency [facility] [id number] [facility] 2016-07-02 13:00:51 2016-07-02 13:00:51 Outpatient [facility] [id number] [facility] 2016-07-02 10:19:21 2016-07-02 10:19:21 Outpatient [facility] [id number] [facility] 2016-07-02 09:24:48 2016-07-02 09:24:48 Outpatient [facility] [id number] [facility] Results Test Description Test Time Test Comments Results Result Comments Source CHEST SINGLE (PORTABLE) 2020-02-07 13:26:00 [place] [address] Patient Name: CASSY DOMINGUEZ MR #: [id number] : 1955 Age/Sex: 64/F Req #: [id number] Adm Physician: Ordered by: CRISTAL ELIZONDO DO Report #: [id number] Location: ER Room/Bed: Procedure: [id number] DX/CHEST SINGLE (PORTABLE) Exam Date: 02/07/20 Exam Time: 1300 REPORT STATUS: Signed Chest, 1 view, 02/07/2020. History: Chest pain. Comparison: 12/02/2018. Findings: The cardiomediastinal silhouette and pulmonary vasculature are within normal limits for a portable exam. There is no focal consolidation or pleural effusi on. There are no acute osseous or soft tissue abnormalities. Impression: No acute cardiopulmonary abnormality. Signed by: Jonathan Barragan on 02/07/2020 1:26 PM Dictated By: JONATHAN BARRAGAN MD 1326 Transcribed By: BOYD on 02/07/20 1326 COPY TO: SANDHIR, AMBICA, DO Hemoglobin A1C 2019-11-29 14:15:00 Test Item Hemoglobin A1c (test code = 4548-4) 6.2 % 4.3-6.1 H Estimated Average Glucose (test code = 94963289) 131 mg/dL 70-11 0 H Lab Interpretation (test code = 96932-9) [facility]/Ebfzojrydw8550-11-36 13:38:00* Test Item Value Reference Range Interpretation Comments Urea Nitrogen (test code = 87812569) 15.0 mg/dL 7-25 Creatinine (test code = 19887596) 0.7 mg/dL 0.6-1.2 GFR, Estimated (test code = 52842891) 84 >=90 mL/min/1.73 m2 L Lab Interpretation (test code = 74594-0) [facility]normal [facility] HospitalVenxlxLmmpzqa0273-61-05 13:38:00* Test Item Value Reference Range Interpretation Comments Glucose (test code = 18138822) 99 mg/dL 70-110 Patient Fasting? (test code = 96313753) Yes [facility]Lipid Eqyptnj8185-54-23 13:38:00* Test Item Value Reference Range Interpretation Comments Cholesterol (test code = 2093-3) 136.0 mg/dL <=200.0 Triglyceride (test code = 26956737) 355 mg/dL <150 H HDL (test code = 2085-9) 31.0 mg/dL See Reference Range Narrative . LDL (test code = 96919-9) 34 mg/dL <100 Op timal: < 100.0 mg/dLNear Optimal: 120-129 mg/dLBorderline: 130-159 mg/dLHigh: 160-189 mg/dLVery High: >=190 mg/dL Patient Fasting? (test code = 65987924) Yes Lab Interpretation (test code = 54322-1) [facility]normal [facility]NOB3457-40-22 13:37:00* Test Item Value Reference Range Interpretation Comments ALT (test code = 88324296) 17 U/L 7-52 AST (test code = 31120110) 16 U/L 13-39 Lab Interpretation (test code = 12820-6) Normal [facility] HospitalXetymxDbqodmvvksfc4548-93-69 13:37:00* Test Item Value Reference Range Interpretation Comments Sodium (test code = 2951-2) 136 mmol/L 136-145 Potassium (test code = 2823-3) 4.5 mmol/L 3.5-5.1 Chloride (test code = 2075-0) 98 mmol/L 98-107 CO2 (test code = 66134666) 28 mmol/L 21-31 Anion Gap (test code = 96469052) 10 mmol/L 5-16 Lab Interpretation (test code = 63765-4) Normal [facility] VIEWS [id number] 13:17:50IMPRESSION: 1. No acute fracture.2. 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 If the report is "FINALIZED" it indicates that the attending/staffradiologist has reviewed the images and agrees with the resident'sinterpretation. Dictated By: Blu Garcia MD, 08/10/2019 1:16 PM I have reviewed the study and agree with the findings in this report. Signed By: Rivas Maria MD, 08/10/2019 1:17 PM Interface, Rad/Mammog In - 08/10/2019 1:22 PM CDTEXAMINATION: XRAY SHOULDER 3 VIEWS MININDICATION: pain COMPARISON: Right shoulder x-ray 07/02/2016FINDINGS:BONE:No acute fracture. Prominent subacromial spur. Calcific tendinopathy ofthe rotator cuff in the res orptive phase. Osseous demineralization.JOINTS:Severe degenerative arthrosis of the acromioclavicular and glenohumeraljoints.SOFT TISSUES:No acute findings.IMPR ESSIONIMPRESSION: 1. No acute fracture.2. Degenerative arthrosis of the should er with rotator cuff calcifictendinopathy in the resorptive phase.If the report is "FINALIZED" it indicates that the attending/staffradiologist has reviewed the images and agrees with the resident'sinterpretation.Dictated By: Blu lima MD, 08/10/2019 1:16 PMI have reviewed the study and agree with the findings in this report.Signed By: Rivas Maria MD, 08/10/2019 1:17 PMHarris HealthXRAY HAND 3 VIEWS [id number] 13:15:10IMPRESSION: No acute osseous lesion. Degenerative arthrosis of the hands Signed By: Rivas Maria MD, 08/10/2019 1:15 PM Interface, Rad/Mammog In - 08/10/2019 1:22 PM CDTRight left-hand 3 views each HISTORY: pain in joints COMPARISON: None DISCUSSION:No fracture.Degenerative arthrosis of the interphalangeal joints and CMC joints.The visualized soft tissues appear unremarkable.IMPRESSIONIMPRESSION: No acute osseous lesion.Degenerative arthrosis of the handsSigned By: Rivas Maria MD, 08/10/2019 1:15 PMHarris HealthMAMMOGRAM BILAT SCREEN TMHMKIP1182-76-09 13:00:00 IMPRESSION: BENIGNThere is no mammographic evidence of malignancy. A 1 year scre ening mammogram is recommended. This document has been electronically signed. Tato Barrios M.D. et/penrad:07/02/2019 13:00:48 Fur Polisher: Ms Hari Terry RT(R)(M), [facility]3]letter sent: Mammography No rmal Mammogram BI-RADS: 2 Benign G0202 z12.31Interface, Rad/Mammog In - 07/01 1:32 PM TOP KNITTER#[id number] - MAMMOGRAM BILAT SCREEN DIGITALBILATERAL DIGITAL SC REENING MAMMOGRAM WITH CAD: 07/02/2019CLINICAL: Screening for malignancy. Compari son is made to exams dated: 06/05/2018, 07/26/2016, and 05/23/2015 [facility]. The tissue of both breasts is heterogeneously dense. This may lower t he sensitivity of mammography. Current study was also evaluated with a Computer Aided Detection (CAD) system. There are benign appearing calcifications in the right breast. No significant masses, calcifications, or other findings are seen in either breast. There has been no significant interval change.IMPRESSIONIMP RESSION: BENIGNThere is no mammographic evidence of malignancy. A 1 year screeni ng mammogram is recommended. This document has been electronically signed.Tim Barrios M.D. et/penrad:07/02/2019 13:00:48 Fur Polisher: Ms. Brandan Terry RT(R)(M), [facility]3]letter sent: Mammography Normal Mammogram BI-RADS: 2 Benign G0202 z12.31[facility]/Zwyy8904-92-82 16:51:00* Test Item Value Reference Range Interpretation Comments WBC (test code = 6690-2) 4.1 K/uL 4.5-11 L RBC (test code = 789-8) 4.34 4.20- 5.40 M/uL Hemoglobin (test code = 718-7) 13.2 g/dL 12-16 Hematocrit (test code = 4544-3) 40.6 % 37-47 MCV (test code = 787-2) 93.5 fL 82-92 H MCH (test code = 785-6) 30.4 pg 27-32 MCHC (test code = 786-4) 32.5 g/dL 32-36 RDW (test code = 17360-1) 44.2 fL 36.4-46.3 Platelet (test code = 777-3) 212 K/uL 150-400 Mean Platelet Volume (test code = 70993-5) 9.0 fL 9.4-12.4 L Percent NRBC (test code = 01941828) 0.0 % Neutrophil (test code = 770-8) 48.9 % 34-70 Lymphs (test code = 736-9) 39.0 % 20-50 Monocytes (test code = 5905-5) 8.5 % 5-12 Eos (test code = 713-8) 2.7 % 0.7-5 Basos (test code = 706-2) 0.7 % 0.1-1.2 Immature Granulocytes (test code = 44489006) 0.2 % 0-0.5 Neutrophils (Absolute) (test code = 99987808) 2.00 K/uL 1.56-6.1 3 Lymphs (Absolute) (test code = 09942180) 1.60 K/uL 1.18-3.74 Monocytes(Absolute) (test code = 18304266) 0.35 K/uL 0.24-0.36 Eos (Absolute) (test code = 39818329) 0.11 K/uL 0.04-0.36 Baso (Absolute) (test code = 07929164) 0.03 K/uL 0.01-0.08 Immature Grans (Abs) (test code = 29026747) 0.01 K/uL 0-0.03 Absolute NRBC (test code = 09163839) 0.00 K/uL Lab Interpretation (test code = 82365-9) [facility]normal [facility] HospitalMicroalbumin / Creatinine Urine Hcuse0385-77-97 16:18:00* Test Item Value Reference Range Interpretation Comments Microalbumin, Random (test code = 04932973) <0.7 <30.0 mg/d L Creatinine, Urine (test code = 90924308) 32 mg/dL 20-320 Urine Microalbumin (test code = 41352817) <21.9 0-30 Lab Interpretation (test code = 67489-8) Normal [facility] HospitalFolic Psjq9406-29-71 16:06:00* Test Item Value Reference Range Interpretation Comments Folic Acid (test code = 46471453) 10.2 ng/mL 5.9-24.8 Lab Interpretation (test code = 44362-2) Normal [facility] HospitalVitamin [id number] 16:03:00* Test Item Value Reference Range Interpretation Comments Vitamin B12 (test code = 55006692) 264 pg/mL See comment Normal: 180-914 pg/mLIntermittent: 145-180 pg/mLDeficient: <=145.0 pg/mL [facility] HospitalFree [id number] 16:02:00* Test Item Value Reference Range Interpretation Comments Free T4 (test code = 35907760) 0.85 ng/dl 0.64-1.42 Lab Interpretation (test code = 59810-1) Normal [facility] HospitalImptghCqwdtlea8322-50-75 15:59:00* Test Item Value Reference Range Interpretation Comments Ferritin (test code = 31380461) 40.9 ng/mL 11-306.8 Lab Interpretation (test code = 30125-2) Normal [facility] HospitalTSH [Thyroid Stimulating Hormone]2019-05-03 15:56:00* Test Item Value Reference Range Interpretation Comments TSH (test code = 04935459) 4.10 0.45- 5.33 uIU/mL If , please see the following reference ranges (not verified by lab): 1st Trimester: 0.05 -3.70 uIU/mL2nd Trimester: 0.31 -4.35 uIU/mL3rd Trimester: 0.41 - 5.18 uIU/mL Lab Interpretation (test code = 84756-5) Normal [facility] Wghilpt9545-31-32 15:32:00* Test Item Value Reference Range Interpretation Comments Iron (test code = 52259128) 79 ug/dL 50-212 TIBC (test code = 83089192) 367 ug/dL 250-450 % Iron Sat (test code = 38043524) 22 % Transferrin (test code = 30338285) 262.11 mg/dL 203-362 [facility] HospitalCreatine Yhcdai6283-37-81 20:46:00* Test Item Value Reference Range Interpretation Comments Creatine Kinase (test code = 2157-6) 50 29-168 [facility] RB1049-47-33 20:46:00* Test Item Value Reference Range Interpretation Comments Creatine Kinase MB (test code = 32258-0) 0.80 0-5.0 [facility] HospitalTroponin Z4124-23-18 20:46:00* Test Item Value Reference Range Interpretation Comments Troponin I (test code = XRQ1700) 0.001 0-0.300 [facility] HospitalU[facility] NZE5934-22-62 19:04:00* Test Item Value Reference Range Interpretation Comments Urine WBC (test code = 5821-4) 0-5 0-5 [facility] HospitalU[facility] [id number] 19:04:00* Test Item Value Reference Range Interpretation Comments Urine RBC (test code = 71180-0) NONE 0-5 [facility] Qrsntvgs8588-80-72 19:04:00* Test Item Value Reference Range Interpretation Comments Urine Bacteria (test code = 27887-2) RARE NONE [facility] HospitalU[facility] Epithelial Jqngr0310-77-07 19:04:00 * Test Item Value Reference Range Interpretation Comments Urine Epithelial Cells (test code = 07603-5) RARE NONE [facility] Xliao4779-83-33 19:02:00* Test Item Value Reference Range Interpretation Comments Sodium Level (test code = 2951-2) 138 136-145 [facility] HospitalPotassium Jseyv6323-78-80 19:02:00* Test Item Value Reference Range Interpretation Comments Potassium Level (test code = 2823-3) 4.0 3.5-5.1 [facility] HospitalChloride Wmkti0607-02-41 19:02:00* Test Item Value Reference Range Interpretation Comments Chloride Level (test code = 2075-0) 104 98-107 [facility] HospitalCarbon Dioxide Zuvgk6025-01-03 19:02:00* Test Item Value Reference Range Interpretation Comments Carbon Dioxide Level (test code = 2028-9) 21 22-29 L [facility] HospitalAnion Xyk3300-34-23 19:02:00* Test Item Value Reference Range Interpretation Comments Anion Gap (test code = 20425-9) 17.0 8-16 H [facility] HospitalBlood Urea Tfivnnhp2528-77-80 19:02:00* Test Item Value Reference Range Interpretation Comments Blood Urea Nitrogen (test code = 3094-0) 19 7-26 [facility] HospitalCreatinine2019-08-07 19:02:00* Test Item Value Reference Range Interpretation Comments Creatinine (test code = 2160-0) 0.81 0.57-1.11 [facility] HospitalBUN/Creatinine Fnrjh1585-23-25 19:02:00* Test Item Value Reference Range Interpretation Comments BUN/Creatinine Ratio (test code = 3097-3) 23 6-25 [facility] HospitalEstimat Glomerular Filtration Rate 2018-12-02 19:02:00* Test Item Value Reference Range Interpretation Comments Estimat Glomerular Filtration Rate (test code = 405345410) > 60 >60 Ranges were taken from the National Kidney Disease Education Program and the [facility] [employer] [employer] literature.Reference ranges:60 or greater: Yphmkm60-46 ( for 3 consecutive months): Chronic kidney disease 15 or less: Kidney failureStarr County Memorial HospitalGlucose Llqyq4643-80-36 19:02:00* Test Item Value Reference Range Interpretation Comments Glucose Level (test code = ZBF6591) 104 74-118 [facility] HospitalCalcium Gemag8569-96-11 19:02:00* Test Item Value Reference Range Interpretation Comments Calcium Level (test code = 87655-7) 9.7 8.4-10.2 [facility] HospitalTotal Srmegzywv9307-05-51 19:02:00* Test Item Value Reference Range Interpretation Comments Total Bilirubin (test code = 1975-2) 0.3 0.2-1.2 [facility] HospitalAspartate Amino Transf (AST/SGOT) 2018-12-02 19:02:00* Test Item Value Reference Range Interpretation Comments Aspartate Amino Transf (AST/SGOT) (test code = Aspartate Amino Transf (AST/SGOT)) 47 5-34 H [facility] HospitalAlanine Aminotransferase (ALT/SGPT) 2018-12-02 19:02:00* Test Item Value Reference Range Interpretation Comments Alanine Aminotransferase (ALT/SGPT) (test code = 1742-6) 55 0-55 [facility] HospitalTotal Wyzdoyy4213-99-14 19:02:00* Test Item Value Reference Range Interpretation Comments Total Protein (test code = 2885-2) 7.2 6.5-8.1 [facility] HospitalAlbumin2019-08-07 19:02:00* Test Item Value Reference Range Interpretation Comments Albumin (test code = 1751-7) 4.0 3.5-5.0 [facility] HospitalGlobulin2019-08-07 19:02:00* Test Item Value Reference Range Interpretation Comments Globulin (test code = 94182-2) 3.2 2.3-3.5 [facility] HospitalAlbumin/Globulin Afsnx0959-53-33 19:02:00 * Test Item Value Reference Range Interpretation Comments Albumin/Globulin Ratio (test code = 1759-0) 1.3 0.8-2.0 [facility] HospitalAlkaline Bqkdckillmr1868-50-76 19:02:00* Test Item Value Reference Range Interpretation Comments Alkaline Phosphatase (test code = 6768-6) 48 40-150 [facility] HospitalProthrombin Vble6674-96-64 19:01:00* Test Item Value Reference Range Interpretation Comments Prothrombin Time (test code = 5902-2) 13.0 11.9-14.5 [facility] HospitalProthromb Time International Ratio 2018-12-02 19:01:00* Test Item Value Reference Range Interpretation Comments Prothromb Time International Ratio (test code = 6301-6) 0.93 Oral Anticoagulant Therapy INR Values:1. Low Intensity Therapy 1.5 - 2.02 . Moderate Intensity Therapy 2.0 - 3.03. High Intensity Therapy(1) 2.5 - 3. 54. High Intensity Therapy(2) 3.0 - 4.05. Panic Value INR > 5.0 [facility] HospitalActivated Partial Thromboplast Time 2018-12-02 19:01:00* Test Item Value Reference Range Interpretation Comments Activated Partial Thromboplast Time (test code = 87601-1) 31.6 23.8-35.5 [facility] HospitalUrine Rdxvr8661-34-03 19:00:00* Test Item Value Reference Range Interpretation Comments Urine Color (test code = 5778-6) YELLOW YELLOW [facility] HospitalUrine Eedothq2666-60-62 19:00:00* Test Item Value Reference Range Interpretation Comments Urine Clarity (test code = 35808-6) SL CLOUDY CLEAR [facility] HospitalUrine Specific Fgnmtxp2068-93-18 19:00:00 * Test Item Value Reference Range Interpretation Comments Urine Specific [place] (test code = 5811-5) 1.020 1.010-1.02 5 [facility] HospitalUrine [id number] 19:00:00* Test Item Value Reference Range Interpretation Comments Urine pH (test code = 49068-7) 6 5-7 [facility] HospitalU[facility] Leukocyte Wjtwvbgx9064-01-13 19:00:00* Test Item Value Reference Range Interpretation Comments Urine Leukocyte Esterase (test code = 82028-6) TRACE NEGATIV E H [facility] HospitalUrine Wycewto6727-83-04 19:00:00* Test Item Value Reference Range Interpretation Comments Urine Nitrite (test code = 34705-9) NEGATIVE NEGATIVE [facility] HospitalUrine Lfchebb0537-83-21 19:00:00* Test Item Value Reference Range Interpretation Comments Urine Protein (test code = 68588-8) NEGATIVE NEGATIVE [facility] HospitalUrine Glucose (UA)2018-12-02 19:00:00* Test Item Value Reference Range Interpretation Comments Urine Glucose (UA) (test code = 58072-0) NEGATIVE NEGATIVE [facility] HospitalUrine Xtnngbw7696-70-26 19:00:00* Test Item Value Reference Range Interpretation Comments Urine Ketones (test code = 42377-2) NEGATIVE NEGATIVE [facility] HospitalUrine Cfitutxqcyej0611-63-89 19:00:00* Test Item Value Reference Range Interpretation Comments Urine Urobilinogen (test code = 21556-9) 0.2 0.2-1 [facility] HospitalUrine Sjrztxnao2520-39-00 19:00:00* Test Item Value Reference Range Interpretation Comments Urine Bilirubin (test code = 1977-8) NEGATIVE NEGATIVE [facility] HospitalUrine Mrvay9282-53-24 19:00:00* Test Item Value Reference Range Interpretation Comments Urine Blood (test code = 18065-6) NEGATIVE NEGATIVE [facility] HospitalWhite Blood Gacle4565-25-96 18:47:00* Test Item Value Reference Range Interpretation Comments White Blood Count (test code = 6690-2) 4.67 4.8-10.8 L [facility] HospitalRed Blood Wqbkw1334-74-10 18:47:00* Test Item Value Reference Range Interpretation Comments Red Blood Count (test code = 789-8) 3.94 3.6-5.1 [facility] HospitalHemoglobin2019-08-07 18:47:00* Test Item Value Reference Range Interpretation Comments Hemoglobin (test code = 64352-6) 12.2 12.0-16.0 [facility] HospitalHematocrit2019-08-07 18:47:00* Test Item Value Reference Range Interpretation Comments Hematocrit (test code = 4544-3) 36.7 34.2-44.1 [facility] HospitalMean Corpuscular Jwvnio0808-91-09 18:47:00* Test Item Value Reference Range Interpretation Comments Mean Corpuscular Volume (test code = 787-2) 93.1 81-99 [facility] Corpuscular [id number] 18:47:00* Test Item Value Reference Range Interpretation Comments Mean Corpuscular Hemoglobin (test code = 785-6) 31.0 28-32 [facility] Hemoglobin Concent 2018-12-02 18:47:00* Test Item Value Reference Range Interpretation Comments Mean Corpuscular Hemoglobin Concent (test code = 786-4) 33.2 31-35 [facility]Red Cell Distribution [id number] 18:47:00* Test Item Value Reference Range Interpretation Comments Red Cell Distribution Width (test code = 89043-2) 12.4 11.7 -14.4 [facility] HospitalPlatelet [id number] 18:47:00* Test Item Value Reference Range Interpretation Comments Platelet Count (test code = 777-3) 265 140-360 [facility] HospitalNeutrophils (%) (Auto)2018-12-02 18:47:00 * Test Item Value Reference Range Interpretation Comments Neutrophils (%) (Auto) (test code = 57375-4) 59.6 38.7-80.0 [facility] HospitalLymphocytes (%) (Auto)2018-12-02 18:47:00 * Test Item Value Reference Range Interpretation Comments Lymphocytes (%) (Auto) (test code = 736-9) 22.9 18.0-39.1 [facility] HospitalMonocytes (%) (Auto)2018-12-02 18:47:00* Test Item Value Reference Range Interpretation Comments Monocytes (%) (Auto) (test code = 5905-5) 10.3 4.4-11.3 [facility]Eosinophils (%) (Auto)2018-12-02 18:47:00 * Test Item Value Reference Range Interpretation Comments Eosinophils (%) (Auto) (test code = 713-8) 6.0 0.0-6.0 [facility]Basophils (%) (Auto)2018-12-02 18:47:00* Test Item Value Reference Range Interpretation Comments Basophils (%) (Auto) (test code = 706-2) 0.6 0.0-1.0 [facility] HospitalIM GRANULOCYTES %2018-12-02 18:47:00* Test Item Value Reference Range Interpretation Comments IM GRANULOCYTES % (test code = IM GRANULOCYTES %) 0.6 0.0- 1.0 [facility] HospitalNeutrophils # (Auto)2018-12-02 18:47:00* Test Item Value Reference Range Interpretation Comments Neutrophils # (Auto) (test code = 751-8) 2.8 2.1-6.9 [facility] HospitalLymphocytes # (Auto)2018-12-02 18:47:00* Test Item Value Reference Range Interpretation Comments Lymphocytes # (Auto) (test code = 18377-9) 1.1 1.0-3.2 [facility] HospitalMonocytes # (Auto)2018-12-02 18:47:00* Test Item Value Reference Range Interpretation Comments Monocytes # (Auto) (test code = 742-7) 0.5 0.2-0.8 [facility]Eosinophils # (Auto)2018-12-02 18:47:00* Test Item Value Reference Range Interpretation Comments Eosinophils # (Auto) (test code = 711-2) 0.3 0.0-0.4 [facility]Basophils # (Auto)2018-12-02 18:47:00* Test Item Value Reference Range Interpretation Comments Basophils # (Auto) (test code = 704-7) 0.0 0.0-0.1 [facility] HospitalAbsolute Immature Granulocyte (auto 2018-12-02 18:47:00* Test Item Value Reference Range Interpretation Comments Absolute Immature Granulocyte (auto (андрей t code = Absolute Immature Granulocyte (auto) 0.03 0-0.1 [facility] HospitalCHEST SINGLE (NOT PORTABLE)2018-12-02 18:27:00 [facility] [address] [place] [address] Patient Name: CASSY DOMINGUEZ MR #: [id number] : 1955 Age/Sex: 63/F Req #: [id number] Adm Physician: Ordered by: JONATHAN COVARRUBIAS PLATINUM SMITH Report #: [id number] Location: ER Room/Bed: Procedure: [id number] DX /CHEST SINGLE (NOT PORTABLE) Exam Date: 12/02/18 Exa m Time: 1817 REPORT STATUS: Signed EXAMINATION: CHEST SINGLE (NOT PORTABLE) INDICATION: ERMD ORDER [id number] 1818 Y COMPARISON: 08/16/2007 FINDINGS: AP view TUBES and LINES: None. LUNGS: Lungs are well inflated. L ungs are clear. There is no evidence of pneumonia or pulmonary edema. P LEURA: No pleural effusion or pneumothorax. HEART AND MEDIASTINUM: The ca rdiomediastinal silhouette is unremarkable. BONES AND SOFT TISSUES: No acute osseous lesion. Soft tissues are unremarkable. UPPER ABDOMEN: No free air under the diaphragm. IMPRESSION: No acute thoracic abnormal ity. Signed by: Dr. Kenneth Burnette MD on 12/02/2018 6:29 PM Dictate d By: KENNETH BURNETTE MD 1 829 Transcribed By: BOYD on 12/02/18 2348 COPY TO: JONATHAN COVARRUBIAS
--- OUTSIDE RECORDS SUMMARY | 2020-02-07 14:18 | XMS REPORT | Clinical Summary ---
Author Author [facility] Organization [facility] Address Unknown Phone Unavailable Care Team Providers Care Completions Manager Name Role Phone Bladimir Schneider MD PCP Allergies Comments Active Allergy Reactions Severity Noted Date Clofibrate 01/02/2006 Medications End Date Status Medication Sig Dispensed Refills Start Date Active blood glucose Use as 1 Kit 0 meterIndications: directed.. 6 Prediabetes Active lancets 28 Use 2 times 100 Each 1 gaugeIndications: Type 2 weekly as 7 diabetes mellitus without directed. complication, without long-term current use of insulin Active ergocalciferol (VITAMIN Take 1 12 capsule 0 D2) 1,250 mcg (50,000 capsule by 0 unit) capsuleIndications: mouth weekly. Vitamin D deficiency Active methocarbamoL Take 1 tablet 30 tablet 1 (ROBAXIN-750) 750 mg by mouth 3 0 tabletIndications: times daily Bilateral leg cramps as needed (cramps). Active blood glucose test Check blood 50 Each 3 09/22/2 02 stripsIndications: Type 2 glucose 2 0 diabetes mellitus without times weekly complication, without long-term current use of insulin Active ketoconazole (NIZORAL) 2 Wash hair 120 mL 11 0 % shampooIndications: three time a 0 Medication refill week. Active atorvastatin (LIPITOR) 40 Take 1 tablet 90 tablet 1 mg tabletIndications: by mouth at 0 Hypertriglyceridemia bedtime nightly. 05/07/2020 Active tropicamide (MYDRIACYL) Instill 1 15 mL 0 0.5 % ophthalmic Drop in each 0 solutionIndications: Type eye once as 2 diabetes mellitus needed for up without complication, to 1 dose without long-term current (for poor use of insulin retina scan image). Active lisinopriL-hydrochlorothi Take 1 tablet 90 tablet 0 azide (PRINZIDE, by mouth 0 ZESTORETIC) 20-12.5 mg daily. per tabletIndications: Essential hypertension, benign Active metFORMIN (GLUCOPHAGE) Take 1 tablet 90 tablet 1 0 500 mg tabletIndications: by mouth 0 Borderline diabetes daily (with breakfast). Active omeprazole (PRILOSEC) 20 Take 1 30 capsule 3 0 mg delayed release capsule by 0 capsuleIndications: mouth daily. Gastroesophageal reflux disease without esophagitis 05/03/2019 Discontinued (Therapy comple nolvia) mometasone (NASONEX) 50 Use 2 sprays 17 g 1 1 mcg/actuation nasal in each 6 sprayIndications: nostril Seasonal allergic daily. rhinitis, unspecified allergic rhinitis trigger 05/03/2019 Discontinued (Therapy comple nolvia) ergocalciferol (VITAMIN Take 1 12 capsule 0 D2) 50,000 unit capsule by 7 capsuleIndications: mouth weekly. Vitamin D deficiency 09/22/2019 Discontinued (Reorder) blood glucose test Check blood 50 Each 3 01 stripsIndications: Type 2 glucose 2 7 diabetes mellitus without times weekly complication, without long-term current use of insulin 05/03/2019 Discontinued (Therapy comple nolvia) fluocinonide (LIDEX) 0.05 Apply to 60 mL 11 % external affected area 8 solutionIndications: 2 times Seborrheic dermatitis daily. 05/03/2019 Discontinued (Therapy comple nolvia) ketoconazole (NIZORAL) 2 Apply to 30 g 11 0 % topical affected area 8 creamIndications: daily. Seborrheic dermatitis 05/03/2019 Discontinued (Therapy comple nolvia) sucralfate (CARAFATE) 100 Take 10 mL by 420 mL 0 01/15/ mg/mL oral mouth 4 times 8 suspensionIndications: daily. Hiatal hernia with GERD and esophagitis 05/03/2019 Discontinued (Therapy comple nolvia) acetaminophen-codeine Take 1 tablet 60 tablet 0 (TYLENOL/CODEINE #3) by mouth 9 300-30 mg per every 6 hours tabletIndications: as needed for Incomplete tear of right Pain. rotator cuff 05/03/2019 Discontinued (Therapy comple nolvia) acebutolol (SECTRAL) 200 Take 1 90 capsule 0 0 mg capsuleIndications: capsule by 9 Abnormal EKG mouth daily. 05/03/2019 Discontinued (Reorder) metFORMIN (GLUCOPHAGE) Take 1 tablet 90 tablet 1 0 500 mg tabletIndications: by mouth 9 Borderline diabetes daily (with breakfast). 05/03/2019 Discontinued (Reorder) atorvastatin (LIPITOR) 20 Take 1 tablet 90 tablet 1 mg tabletIndications: by mouth at 9 Hypertriglyceridemia bedtime nightly. 05/03/2019 Discontinued (Reorder) lisinopril-hydrochlorothi Take 1 tablet 90 tablet 1 azide (PRINZIDE, by mouth 9 ZESTORETIC) 20-12.5 mg daily. per tabletIndications: Essential hypertension, benign 05/03/2019 Discontinued (Therapy comple nolvia) omeprazole (PRILOSEC) 20 Take 1 30 capsule 6 0 mg delayed release capsule by 9 capsuleIndications: mouth daily. Hiatal hernia with GERD and esophagitis 10/28/2019 Discontinued (Reorder) ketoconazole (NIZORAL) 2 Wash hair 120 mL 11 0 % shampooIndications: three time a 9 Medication refill week. 11/10/2019 Discontinued (Reorder) metFORMIN (GLUCOPHAGE) Take 1 tablet 90 tablet 1 0 500 mg tabletIndications: by mouth 0 Borderline diabetes daily (with breakfast). 11/09/2019 Discontinued (Reorder) atorvastatin (LIPITOR) 20 Take 1 tablet 90 tablet 1 mg tabletIndications: by mouth at 0 Hypertriglyceridemia bedtime nightly. 11/09/2019 Discontinued (Reorder) lisinopriL-hydrochlorothi Take 1 tablet 90 tablet 1 azide (PRINZIDE, by mouth 0 ZESTORETIC) 20-12.5 mg daily. per tabletIndications: Essential hypertension, benign 05/11/2019 Discontinued (Reorder) methocarbamol Take 1 tablet 30 tablet 1 (ROBAXIN-750) 750 mg by mouth 3 0 tabletIndications: times daily Bilateral leg cramps as needed for Pain. 01/04/2020 Discontinued (Reorder) omeprazole (PRILOSEC) 20 Take 1 30 capsule 3 0 mg delayed release capsule by 0 capsuleIndications: mouth daily. Gastroesophageal reflux disease without esophagitis Status Hospital, Clinic, or Ordered Dose Route Frequency Start End Date Other Facility Date Administered Medication Ended triamcinolone acetonide 40 mg OTHER ONCE 03/12/20 (KENALOG-40) injection 40 19 9 mgIndications: Chronic right shoulder pain Ended lidocaine 1 % (XYLOCAINE) 4 mL IJ ONCE 03/12/20 injection 4 19 9 mLIndications: Chronic right shoulder pain Active Problems Problem Noted Date Anemia 11/10/2017 Sinus arrhythmia - w/ premature QRS - started on BB 04/2016 by outside 06/10/2017 doctor Financial difficulties - not working, taking care of son's Ex GF's 06/10/2017 baby (CPS was gonna take the child) Cellulitis of antecubital fossa - lt w/ superficial t hrombophlebitis and 01/21/2017 thrombosis, stap + bcx s/p IP nafciilli n 2 wks, levolflox po 4 wks started 01/11 , TTE no vegetation, see [facility] records Impaired mobility and ADLs 11/12/2016 Chronic right shoulder pain 11/12/2016 Pain aggravated by lifting 11/12/2016 Esophageal dysmotilities - Esophageal motility test o rdered 11/05/2016 Anxiety 10/07/2016 Osteopenia 08/16/2016 Borderline diabetes 08/04/2016 Pain in joint of right shoulder- started 30 yrs back - increasing ; 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 , severe DJD on MRI Neutropenia- seeing Heme likely MDS 03/12/2016 S/P colonoscopy - showed active colitis (infection ru led out) missed GI [facility] 11/13/2015 asked to make again Chronic pancreatitis 05/23/2015 Essential hypertension, benign 05/23/2015 Pap smear of cervix not needed s/p hysterectomy 04/29 Abnormal EKG - sinus arrythmia and premature QRS mueller sition in precordial 05/23/2015 leads thats why on BB as per pt H/O colonoscopy with polypectomy 4 polpys removed 1 p recancerous repeated 05/23/2009 2016 repeat in 10yrs Hypertriglyceridemia 01/02/2006 Macrocytosis- low B12 01/02/2006 Gastroesophageal reflux disease without esophagitis Encounters Care Team Description Date Type Specialty Bladimir Schneider III, MD Medications 01/04/2020 Refill [facility] Michael Monaco RN 11/16/2019 Nurse Triage Bladimir Schneider III, MD Medications 11/10/2019 Refill [facility] Bladimir Schneider III, MD Type 2 diabetes mellitus without complic ation, without long-term current use of insulin (Primary Dx); Hypertriglyceridemia 11/09/2019 Telephonic [facility] Encounter Bladimir Schneider III, MD Medications 11/09/2019 Refill [facility] Clemente Beard MD Medications 10/28/2019 Refill [facility] Quiana Cota DO Medications 09/22/2019 Refill [facility] Bladimir Schneider III, MD 08/10/2019 Ancillary Radiology Procedure Bladimir Schneider III, MD Pre-diabetes (Primary Dx); Essential hypertension, benign; Hyperlipidemia, unspecified hyperlipidemia type; Gastroesophageal reflux disease without esophagitis; Pain in both hands; Pain in joint of right shoulder [facility] Encounter Bladimir Schneider III, MD Trimino, Katherine Estephanie, LD 07/02/2019 Nutrition Nutrition Bladimir Schneider III, MD 07/02/2019 Ancillary Radiology Procedure Bladimir Schneider III, MD Vitamin D deficiency (Primary Dx); Pre-diabetes; Essential hypertension, benign; Hyperlipidemia, unspecified hyperlipidemia type; Bilateral leg cramps 05/11/2019 Office Visit [facility] Bladimir Schneider III, MD Pre-diabetes (Primary Dx); Essential hypertension, benign; Borderline diabetes; Hypertriglyceridemia; Refractive error; Preventative health care; Anemia, unspecified type; Need for influenza vaccination 05/03/2019 Office Visit [facility] Sandeep Johnson, JITENDRA 05/03/2019 Nurse Triage Ellie Blevins MD Chronic right shoulder pain (Primary Dx) 03/12/2019 Office Visit [facility] after 02/06/2019 Immunizations Name Administration Dates Next Due Influenza Vaccine 02/13/2016, 05/23/2015 Influenza Vaccine, 02/27/2017 Seasonal, Injectable Influenza, Injectable, 05/03/2019 Quadrivalent Influenza, Vaccine 02/09/2018 <FLUCELVAX>(Preservative- Free) PNEUMOCOCCAL 23-VALPS 05/23/2015 VACCINE 25 MCG/0.5 ML INJECTION Tdap (Tetanus Toxoid, 05/03/2019 Reduced Diphtheria Toxoid And Acellular Pertussis, Absorbed) Family History Medical History Relation Name Comments Arthritis Father Heart Father CABG Hypertension Father Diabetes Maternal Grandfather Hypertension Maternal Grandfather Diabetes Maternal Grandmother Heart Maternal Grandmother Hypertension Maternal Grandmother Cancer Mother Breast cancar at ag e 62 yrs Diabetes Mother Hypertension Mother Unknown Fam Hx Paternal Grandfather Unknown Fam Hx Paternal Grandmother Arthritis Sister Hypertension Sister Diabetes Sister Hypertension Sister Diabetes Sister Hypertension Sister Relation Name Status Comments Brother Alive Daughter Alive Father Maternal Grandfather Maternal Grandmother Mother complications with diabetes (Age 1997) Paternal Grandfather Paternal Grandmother Sister Sister Sister Alive Son Alive Son Alive Son Alive Social History Date Tobacco Use Types Packs/Day Years Used Former Smoker Smokeless Tobacco: Never Used Tobacco Cessation: Counseling Given: No Comments: D/C @ age 19yrs Drinks/Week oz/Week Comments Alcohol Use occassionally Yes Food Insecurity Answer Date Recorded Within the past 12 months, you worried that your Never tami e 01/15/2018 food would run out before you got money to buy more. Within the past 12 months, the food you bought Never true 01/15/2018 just didn't last and you didn't have mo deven to get more. Sex Assigned at Date Recorded Not on file Industry Job Start Date Occupation Not on file Not on file Not on file Travel End Travel History Travel Start No recent travel history available. Last Filed Vital Signs Reading Time Taken Comments Vital Sign 122/78 05/11/2019 7:44 AM SENIOR MECHANICAL ENGINEER Blood Pressure 90 05/11/2019 7:44 AM SENIOR MECHANICAL ENGINEER Pulse 36.6 C (97.8 F) 05/11/2019 7:44 AM SENIOR MECHANICAL ENGINEER Temperature 18 05/03/2019 7:54 AM SENIOR MECHANICAL ENGINEER Respiratory Rate - - Oxygen Saturation - - Inhaled Oxygen Concentration 57.6 kg (127 lb) 05/11/2019 7:44 AM SENIOR MECHANICAL ENGINEER Weight 154.9 cm (5' 1") 05/11/2019 7:44 AM SENIOR MECHANICAL ENGINEER Height 24 05/11/2019 7:44 AM SENIOR MECHANICAL ENGINEER Body Mass Index Plan of Treatment Health Maintenance Due Date Last Done Comments DM Foot Exam (Yearly) 06/05/2019 06/05/2018, 06/10/2017, 06/10/2017 DM Retinal Exam (Yearly) 06/05/2019 06/05/2018, 06/10/2017, 06/10/2017, Additional history exists Breast Cancer Scrn 07/01/2020 07/02/2019, (Yearly) 06/05/2018, 07/26/2016, Additional history exists DM HGBA1C (Yearly) 11/28/2020 11/29/2019, 10/28/2019, 05/03/2019, Additional history exists Colonoscopy 10yr 11/05/2025 11/06/2015 Goals Goal Patient Associated Recent Progress Patient-Stat Aut hor Goal Type Problems ed? Reduce fast food intake Diet No Jason Rawls Exercise 150 minutes per week Exercise No Jason Rawls (moderate activity) Eat more vegetables Self No Melissa Rawls an management Procedures Comments Procedure Name Priority Date/Time Associated Diag nosis HEMOGLOBIN A1C Routine 11/29/2019 Type 2 diabetes mellitus 9:13 AM CDT without complication, without long-term current use of insulin UREA NITROGEN/CREATININE Routine 11/29/2019 Type 2 diabetes mellitus 9:13 AM CDT without complication, without long-term current use of insulin ALANINE Routine 11/29/2019 Type 2 diabetes mellitus AMINOTRASFERASE/ASPARTATE 9:13 AM CDT without com plication, AMINOTRANSFERASE without long-term current (ALT/AST) use of insulin LIPID PROFILE Routine 11/29/2019 Hypertriglyceri demia 9:13 AM CDT Type 2 diabetes mellitus without complication, without long-term current use of insulin GLUCOSE Routine 11/29/2019 Type 2 diabetes mellitus 9:13 AM CDT without complication, without long-term current use of insulin ELECTROLYTES Routine 11/29/2019 Type 2 diabetes mellitus 9:13 AM CDT without complication, without long-term current use of insulin HEMOGLOBIN A1C Routine 10/28/2019 Pre-diabetes 9:24 AM CDT UREA NITROGEN/CREATININE Routine 10/28/2019 Pre-d iabetes 9:24 AM CDT ALANINE Routine 10/28/2019 Pre-diabetes AMINOTRASFERASE/ASPARTATE 9:24 AM CDT AMINOTRANSFERASE (ALT/AST) LIPID PROFILE Routine 10/28/2019 Pre-diabetes 9:24 AM CDT GLUCOSE Routine 10/28/2019 Pre-diabetes 9:24 AM CDT ELECTROLYTES Routine 10/28/2019 Pre-diabetes 9:24 AM CDT XRAY SHOULDER 2 VIEWS MIN Routine 08/10/2019 Pain in joint of right 1:15 PM CDT shoulder XRAY HAND 3 VIEWS MIN Routine 08/10/2019 Pain in both hands 1:15 PM CDT XRAY HAND 3 VIEWS MIN Routine 08/10/2019 Pain in both hands 1:15 PM CDT LIPID PROFILE Routine 08/05/2019 Hyperlipidemia, 7:56 AM CDT unspecified hyperlipidemia type ALANINE Routine 08/05/2019 Hyperlipidemia, AMINOTRASFERASE/ASPARTATE 7:56 AM CDT unspecified AMINOTRANSFERASE hyperlipidemia type (ALT/AST) VIT D, 25-HYDROXY Routine 08/05/2019 Vitamin D de ficiency 7:56 AM CDT CALCIUM Routine 08/05/2019 Vitamin D defic iency 7:56 AM CDT MAMMOGRAM BILAT SCREEN Routine 07/02/2019 [place] 12:07 PM SENIOR MECHANICAL ENGINEER VIT D, 25-HYDROXY Routine 05/03/2019 Pre-diabetes 9:06 AM SENIOR MECHANICAL ENGINEER CBC Routine 05/03/2019 Anemia, unspeci fied type 9:06 AM SENIOR MECHANICAL ENGINEER MICROALBUMIN / CREATININE Routine 05/03/2019 Pre- diabetes URINE RATIO 9:06 AM SENIOR MECHANICAL ENGINEER HEMOGLOBIN A1C Routine 05/03/2019 Pre-diabetes 9:06 AM SENIOR MECHANICAL ENGINEER UREA NITROGEN/CREATININE Routine 05/03/2019 Pre-d iabetes 9:06 AM SENIOR MECHANICAL ENGINEER ALANINE Routine 05/03/2019 Pre-diabetes AMINOTRASFERASE/ASPARTATE 9:06 AM SENIOR MECHANICAL ENGINEER AMINOTRANSFERASE (ALT/AST) LIPID PROFILE Routine 05/03/2019 Pre-diabetes 9:06 AM SENIOR MECHANICAL ENGINEER GLUCOSE Routine 05/03/2019 Pre-diabetes 9:06 AM SENIOR MECHANICAL ENGINEER ELECTROLYTES Routine 05/03/2019 Pre-diabetes 9:06 AM SENIOR MECHANICAL ENGINEER CBC/DIFF Routine 05/03/2019 Anemia, unspeci fied type 9:06 AM SENIOR MECHANICAL ENGINEER IRON PROFILE Routine 05/03/2019 Anemia, unspeci fied type 9:06 AM SENIOR MECHANICAL ENGINEER VITAMIN B12 Routine 05/03/2019 Anemia, unspeci fied type 9:06 AM SENIOR MECHANICAL ENGINEER THYROID STIMULATING Routine 05/03/2019 Anemia, un specified type HORMONE (TSH) 9:06 AM SENIOR MECHANICAL ENGINEER FREE T4 Routine 05/03/2019 Anemia, unspeci fied type 9:06 AM SENIOR MECHANICAL ENGINEER FOLIC ACID Routine 05/03/2019 Anemia, unspeci fied type 9:06 AM SENIOR MECHANICAL ENGINEER FERRITIN Routine 05/03/2019 Anemia, unspeci fied type 9:06 AM SENIOR MECHANICAL ENGINEER after 02/06/2019 Results * Hemoglobin A1C (11/29/2019 9:13 AM CDT) Only the most recent of 3 results within the time period is included. Hemoglobin A1c 6.2 (H) 4.3 - 6.1 % [facility] Estimated 131 (H) 70 - 110 mg/dL [facility] Average Glucose [facility] Specimen Blood Performing Organization Address City/State/[facility] Ph one Number [facility] [address] [place] [address] [phone] * Electrolytes (11/29/2019 9:13 AM CDT) Only the most recent of 3 results within the time period is included. Sodium 136 136 - 145 mmol/L [facility] Potassium 4.5 3.5 - 5.1 mmol/L [facility] Chloride 98 98 - 107 mmol/L [facility] CO2 28 21 - 31 mmol/L [facility] Anion Gap 10 5 - 16 mmol/L [facility] Specimen Blood Performing Organization Address [facility] one Number [facility] [address] [place] [address] * Lipid Profile (11/29/2019 9:13 AM CDT) Only the most recent of 4 results within the time period is included. Cholesterol 136.0 <=200.0 mg/dL [facility] Triglyceride 355 (H) <150 mg/dL [facility] HDL 31.0 See Reference Range [facility] Narrative. mg/dL [facility] LDL 34 <100 mg/dL [facility] Comment: [facility] Optimal: < 100.0 mg/dL Near Optimal: 120-129 mg/dL Borderline: 130-159 mg/dL High: 160-189 mg/dL Very High: >=190 mg/dL Patient Yes [facility] Fasting? [facility] Specimen Blood Performing Organization Address [facility] one Number [facility] [address] [place] [address] * Glucose (11/29/2019 9:13 AM CDT) Only the most recent of 3 results within the time period is included. Glucose 99 70 - 110 mg/dL [facility] Patient Yes [facility] Fasting? [facility] Specimen Blood Performing Organization Address [facility] one Number [facility] [address] [place] [address] [phone] * Urea Nitrogen/Creatinine (11/29/2019 9:13 AM CDT) Only the most recent of 3 results within the time period is included. Urea Nitrogen 15.0 7.0 - 25.0 mg/dL [facility] Creatinine 0.7 0.6 - 1.2 mg/dL [facility] GFR, Estimated 84 (L) >=90 mL/min/1.73 m2 [facility] Specimen Blood Performing Organization Address City/State/Zipcode Ph one Number [facility] [address] [place] [address] * ALT/AST (11/29/2019 9:13 AM CDT) Only the most recent of 4 results within the time period is included. ALT 17 7 - 52 U/L [facility] AST 16 13 - 39 U/L [facility] Specimen Blood Performing Organization Address [facility] one Number [facility] [address] [place] [address] * XRAY HAND 3 VIEWS MIN (08/10/2019 1:15 PM CDT) Only the most recent of 2 results within the time period is included. Specimen Impressions Performed At IMPRESSION: SMS No acute osseous lesion. Degenerative arthrosis of the hands Signed By: Rivas Maria MD, 08/10/2019 1:15 PM Narrative Performed At Right left-hand 3 views each SMS HISTORY: pain in joints COMPARISON: None DISCUSSION: No fracture. Degenerative arthrosis of the interphal angeal joints and CMC joints. The visualized soft tissues appear unre markable. Procedure Note Interface, Rad/Mammog In - 08/10/2019 1:22 PM CDT Right left-hand 3 views each HISTORY: pain in joints COMPARISON: None DISCUSSION: No fracture. Degenerative arthrosis of the interphalangeal joints and CMC joints. The visualized soft tissues appear unremarkable. IMPRESSION IMPRESSION: No acute osseous lesion. Degenerative arthrosis of the hands Signed By: Rivas Maria MD, 08/10/2019 1:15 PM Performing Organization Address [facility] one Number SMS * XRAY SHOULDER 2 VIEWS MIN (08/10/2019 1:15 PM CDT) Specimen Impressions Performed At IMPRESSION: SMS 1. No acute fracture. 2. Degenerative arthrosis of the shou lder with rotator cuff calcific tendinopathy in the resorptive phase. If the report is "FINALIZED" it indicat es that the attending/staff radiologist has reviewed the images and agrees with the resident's interpretation. Dictated By: Blu Garcia MD, 07/27 1:16 PM I have reviewed the study and agree wit h the findings in this report. Signed By: Rivas Maria MD, 08/10/2019 1:17 PM Narrative Performed At EXAMINATION: XRAY SHOULDER 3 VIEWS MIN SMS INDICATION: pain COMPARISON: Right shoulder x-ray 07/03/19 FINDINGS: BONE: No acute fracture. Prominent subacromia l spur. Calcific tendinopathy of the rotator cuff in the resorptive phas e. Osseous demineralization. JOINTS: Severe degenerative arthrosis of the ac romioclavicular and glenohumeral joints. SOFT TISSUES: No acute findings. Procedure Note Interface, Rad/Mammog In - 08/10/2019 1:22 PM CDT EXAMINATION: XRAY SHOULDER 3 VIEWS MIN INDICATION: pain COMPARISON: Right shoulder x-ray 07/02/2016 FINDINGS: BONE: No acute fracture. Prominent subacromial spur. Calcific tendinopathy of the rotator cuff in the resorptive phase. Osseous demineralization. JOINTS: Severe degenerative arthrosis of the acromioclavicular and glenohumeral joints. SOFT TISSUES: No acute findings. IMPRESSION IMPRESSION: 1. No acute fracture. 2. Degenerative arthrosis of the should er with rotator cuff calcific tendinopathy in the resorptive phase. If the report is "FINALIZED" it indicates that the attending/staff radiologist has reviewed the images and agrees with the resident's interpretation. Dictated By: Blu Garcia MD, 08/10/2019 1:16 PM I have reviewed the study and agree with the findings in this report. Signed By: Rivas Maria MD, 08/10/2019 1:17 PM Performing Organization Address [facility] one Number [facility] * Vitamin D, 25-Hydroxycalciferol (08/05/2019 7:56 AM CDT) Only the most recent of 2 results within the time period is included. Vit D, 21.9 (L) 30.0 - 100.0 ng/mL [facility] 25-Hydroxy [facility] Vitamin D Insufficient (A) Sufficient [facility] Interpretation Comment: LAB[facility] Sufficient: >30.0 Insufficient: 20.0 - 29.9 Deficient: <20.0 Specimen Blood Performing Organization Address [facility] one Number [facility] [address] [place] [address] * Calcium (08/05/2019 7:56 AM CDT) Calcium 9.4 8.6 - 10.3 mg/dL [facility] Specimen Blood Performing Organization Address City/State/Zipcode Ph one Number [facility] [address] [place] [address] * MAMMOGRAM BILAT SCREEN DIGITAL (07/02/2019 12:07 PM SENIOR MECHANICAL ENGINEER) Specimen Impressions Performed At IMPRESSION: BENIGN SMS There is no mammographic evidence of ma lignancy. A 1 year screening mammogram is recommended. This document has been electronically s igned. Tim Barrios M.D. et/penrad:07/02/2019 13:00:48 Stockbroking Dealer: Ms. Rufina mcdaniel RT(R)(M), [facility] letter sent: Mammography Normal Mammogram BI-RADS: 2 Benign [id number] z1 2.31 Narrative Performed At #[id number] - MAMMOGRAM BILAT SCREEN DIGITAL SMS BILATERAL DIGITAL SCREENING MAMMOGRAM W ITH CAD: 07/02/2019 CLINICAL: Screening for malignancy. Comparison is made to exams dated: 06/05/2018, 07/26/2016, and 05/23/2015 [facility]. The tissue of both breasts is heterogen eously dense. This may lower the sensitivity of mammography. Current study was also evaluated with a Computer Aided Detection (CAD) system. There are benign appearing calcificatio ns in the right breast. No significant masses, calcifications, or other findings are seen in either breast. There has been no significant interval change. Procedure Note Interface, Rad/Mammog In - 07/02/2019 1:32 PM SENIOR MECHANICAL ENGINEER #[id number] - MAMMOGRAM BILAT SCREEN DIGITAL BILATERAL DIGITAL SCREENING MAMMOGRAM WITH CAD: 07/02/2019 CLINICAL: Screening for malignancy. Comparison is made to exams dated: 06/05/2018, 07/26/2016, and 05/23/2015 [facility]. The tissue of both breasts is heterogeneously dense. This may lower the sensitivity of mammography. Current study was also evaluated with a Computer Aided Detection (CAD) system. There are benign appearing calcifications in the right breast. No significant masses, calcifications, or other findings are seen in either breast. There has been no significant interval change. IMPRESSION IMPRESSION: BENIGN There is no mammographic evidence of malignancy. A 1 year screening mammogram is recommended. This document has been electronically signed. Tim Foster/frantz:07/02/2019 13:00:48 Stockbroking Dealer: Ms. uRfina Terry RTEbony)(M), [facility] letter sent: Mammography Normal Mammogram BI-RADS: 2 Benign [id number] Performing Organization Address City/State/Zipcode Ph one Number SMS * CBC/Diff (05/03/2019 9:06 AM SENIOR MECHANICAL ENGINEER) WBC 4.1 (L) 4.5 - 11.0 K/uL [facility] RBC 4.34 4.20 - 5.40 M/uL [facility] Hemoglobin 13.2 12.0 - 16.0 g/dL [facility] Hematocrit 40.6 37.0 - 47.0 % [facility] MCV 93.5 (H) 82.0 - 92.0 fL [facility] MCH 30.4 27.0 - 32.0 pg [facility] MCHC 32.5 32.0 - 36.0 g/dL [facility] RDW 44.2 36.4 - 46.3 fL [facility] Platelet 212 150 - 400 K/uL [facility] Mean Platelet 9.0 (L) 9.4 - 12.4 fL [facility] Volume [facility] Percent NRBC 0.0 % [facility] Neutrophil 48.9 34.0 - 70.0 % [facility] Lymphs 39.0 20.0 - 50.0 % [facility] Monocytes 8.5 5.0 - 12.0 % [facility] Eos 2.7 0.7 - 5.0 % [facility] Basos 0.7 0.1 - 1.2 % [facility] Immature 0.2 0.0 - 0.5 % [facility] Granulocytes [facility] Neutrophils 2.00 1.56 - 6.13 K/uL [facility] (Absolute) [facility] Lymphs 1.60 1.18 - 3.74 K/uL [facility] (Absolute) [facility] Monocytes(Absol 0.35 0.24 - 0.36 K/uL [facility] [place]) [facility] Eos (Absolute) 0.11 0.04 - 0.36 K/uL [facility] Baso (Absolute) 0.03 0.01 - 0.08 K/uL [facility] Immature Grans 0.01 0.00 - 0.03 K/uL [facility] (Abs) [facility] Absolute NRBC 0.00 K/uL [facility] Specimen Blood Performing Organization Address [facility] one Number [facility] [address] [place] [address] * Microalbumin / Creatinine Urine Ratio (05/03/2019 9:06 AM SENIOR MECHANICAL ENGINEER) Microalbumin, <0.7 <30.0 mg/dL [facility] Creatinine, 32 20 - 320 mg/dL [facility] Urine [facility] Urine <21.9 0.0 - 30.0 mg/g [facility] Microalbumin [facility] Specimen Urine - Voided, urine Performing Organization Address [facility] one Number [facility] [address] [place] [address] [phone] * TSH [Thyroid Stimulating Hormone] (05/03/2019 9:06 AM SENIOR MECHANICAL ENGINEER) TSH 4.10 0.45 - 5.33 uIU/mL [facility] Comment: [facility] If , please see the following reference ranges (not verified by lab): 1st Trimester: 0.05 -3.70 uIU/mL 2nd Trimester: 0.31 -4.35 uIU/mL 3rd Trimester: 0.41 - 5.18 uIU/mL Specimen Blood Performing Organization Address [facility] one Number [facility] [address] [place] [address] * Free T4 (05/03/2019 9:06 AM SENIOR MECHANICAL ENGINEER) Free T4 0.85 0.64 - 1.42 ng/dl [facility] Specimen Blood Performing Organization Address [facility] one Number [facility] [address] [place] [address] * Folic Acid (05/03/2019 9:06 AM SENIOR MECHANICAL ENGINEER) Folic Acid 10.2 5.9 - 24.8 ng/mL [facility] Specimen Blood Performing Organization Address [facility] one Number [facility] [address] [place] [address] [phone] * Ferritin (05/03/2019 9:06 AM SENIOR MECHANICAL ENGINEER) Ferritin 40.9 11.0 - 306.8 ng/mL [facility] Specimen Blood Performing Organization Address [facility] one Number [facility] [address] [place] [address] * Vitamin B12 (05/03/2019 9:06 AM SENIOR MECHANICAL ENGINEER) Vitamin B12 264 See comment pg/mL [facility] Comment: [facility] Normal: 180-914 pg/mL Intermittent: 145-180 pg/mL Deficient: <=145.0 pg/mL Specimen Blood Performing Organization Address [facility] Number [facility] [address] [place] [address] * Iron Profile (05/03/2019 9:06 AM SENIOR MECHANICAL ENGINEER) Iron 79 50 - 212 ug/dL [facility] TIBC 367 250 - 450 ug/dL [facility] % Iron Sat 22 % [facility] Transferrin 262.11 203.00 - 362.00 [facility] mg/dL [facility] Specimen Blood Performing Organization Address [facility] one Number [facility] [address] [place] [address] after 02/06/2019 Insurance Type Payer Benefit Subscriber ID Effective Phone Address Plan / Dates Group MEDICARE MEDICARE xxxxxxxxxxx 2018-P [id number] [place] [address] [facility] SELF-PAY SELF-PAY xxxxxx 2019- [phone] [id number] [place] [address]
[2020-02-07] MEDS ORDERED: SODIUM CHLORIDE 0.9% 50ML 50 ML ONE (14:33)
[2020-02-07] MEDS ORDERED: IOPAMIDOL 370 MG/ML 200 ML INFUS..BTL INJ ONE (14:33)
--- NOTE | 2020-02-07 15:07 | Emergency Department Note ---
History of Present Illnes History of Present Illness Chief Complaint: Chest Pain History of Present Illness This is a 64 year old female arrives to the intermittent chest pain for one week. Patient also admits to some esophageal reflux and epigastric abdominal pain. Chief Complaint Comment Patient in from home with complaints of intermittant mid sternal chest pain that has been coming and going for about a week. Patient states that it does not seem to get worse with activity or exertion and statest that it sometimes feels like heart burn that goes up her neck into her throat. Historian: Patient Arrival Mode: Car Severity: mild Duration (how long): day(s) Timing of current episode: constant Chronicity: recurrent Past Medical/Family History Physician Review I have reviewed the patient's past medical and family history. Any updates have been documented here. Past Medical History Recent Fever: No Clinical Suspicion of Infectio: No New/Unexplained Change in Ment: No Past Medical History: Hypertension, Diabetes, GERD, Hyperlipedemia Other Medical History: HYPERCHOLESTEREMIA Past Surgical History: Cholecysctectomy, Social History Smoking Cessation: Never Smoker Counseling Performed: No Other Last Tetanus: UNKNOWN Any Pre-Existing Lines (PICC,: No Review of Systems Review of Systems Constitutional: Reports no symptoms EENTM: Reports no symptoms Cardiovascular: Reports as per HPI Respiratory: Reports no symptoms Gastrointestinal: Reports no symptoms Genitourinary: Reports no symptoms Musculoskeletal: Reports no symptoms Integumentary: Reports no symptoms Neurological: Reports no symptoms Psychological: Reports no symptoms Endocrine: Reports no symptoms Hematological/Lymphatic: Reports no symptoms Physical Exam Related Data Allergies: Coded Allergies: No Known Allergies (Unverified , 02/10/15) Triage Vital Signs Vital Signs Date Time Temp Pulse Resp B/P (MAP) Pulse Ox O2 Delivery O2 Flow Rate FiO2 02/07/20 12:28 98.2 91 18 144/84 100 Room Air Vital signs reviewed: Yes Physical Exam CONSTITUTIONAL Constitutional: Present well-developed, Present well-nourished HENT HENT: Present normocephalic, Present atraumatic, Present oropharynx clear/moist, Present nose normal HENT L/R: Present left ext ear normal, Present right ext ear normal EYES Eyes: Reports PERRL, Reports conjunctivae normal NECK Neck: Present ROM normal PULMONARY Pulmonary: Present effort normal, Present breath sounds normal CARDIOVASCULAR Cardiovascular: Present regular rhythm, Present heart sounds normal, Present capillary refill normal, Present normal rate GASTROINTESTINAL Abdominal: Present soft, Present nontender, Present bowel sounds normal GENITOURINARY Genitourinary: Present exam deferred SKIN Skin: Present warm, Present dry MUSCULOSKELETAL Musculoskeletal: Present ROM normal NEUROLOGICAL Neurological: Present alert, Present oriented x 3, Present no gross motor or sensory deficits PSYCHOLOGICAL Psychological: Present mood/affect normal, Present judgement normal Results Laboratory Result Diagram: 02/07/20 1240 02/07/20 1240 Laboratory Laboratory Tests Test 02/07/20 12:40 White Blood Count 4.73 x10e3/uL (4.8-10.8) Red Blood Count 4.08 x10e6/uL (3.6-5.1) Hemoglobin 12.2 g/dL (12.0-16.0) Hematocrit 37.0 % (34.2-44.1) Mean Corpuscular Volume 90.7 fL (81-99) Mean Corpuscular Hemoglobin 29.9 pg (28-32) Mean Corpuscular Hemoglobin Concent 33.0 g/dL (31-35) Red Cell Distribution Width 12.6 % (11.7-14.4) Platelet Count 232 x10e3/uL (140-360) Neutrophils (%) (Auto) 54.9 % (38.7-80.0) Lymphocytes (%) (Auto) 29.6 % (18.0-39.1) Monocytes (%) (Auto) 8.0 % (4.4-11.3) Eosinophils (%) (Auto) 5.3 % (0.0-6.0) Basophils (%) (Auto) 1.1 % (0.0-1.0) Neutrophils # (Auto) 2.6 (2.1-6.9) Lymphocytes # (Auto) 1.4 (1.0-3.2) Monocytes # (Auto) 0.4 (0.2-0.8) Eosinophils # (Auto) 0.3 (0.0-0.4) Basophils # (Auto) 0.1 (0.0-0.1) Absolute Immature Granulocyte (auto 0.05 x10e3/uL (0-0.1) D-Dimer Quantitative (PE/DVT) 0.54 ug/mLFEU (0.00-0.45) Sodium Level 138 mmol/L (136-145) Potassium Level 4.1 mmol/L (3.5-5.1) Chloride Level 103 mmol/L (98-107) Carbon Dioxide Level 21 mmol/L (22-29) Anion Gap 18.1 mmol/L (8-16) Blood Urea Nitrogen 14 mg/dL (7-26) Creatinine 0.75 mg/dL (0.57-1.11) Estimat Glomerular Filtration Rate > 60 ML/MIN (60-) BUN/Creatinine Ratio 19 (6-25) Glucose Level 120 mg/dL (74-118) Calcium Level 9.6 mg/dL (8.4-10.2) Total Bilirubin 0.3 mg/dL (0.2-1.2) Aspartate Amino Transf (AST/SGOT) 16 IU/L (5-34) Alanine Aminotransferase (ALT/SGPT) 18 IU/L (0-55) Alkaline Phosphatase 99 IU/L (40-150) Creatine Kinase 56 IU/L (29-168) Creatine Kinase MB 0.70 ng/mL (0-5.0) Troponin I < 0.001 ng/mL (0-0.300) Total Protein 7.5 g/dL (6.5-8.1) Albumin 4.0 g/dL (3.5-5.0) Globulin 3.5 g/dL (2.3-3.5) Albumin/Globulin Ratio 1.1 (0.8-2.0) Imaging Imaging results reviewed: Yes Procedures 12 Lead ECG Interpretation ECG Interpretation : ECG: ECG 1 [employer] Consultant: Interpreted by ED physician Prior ECG tracings: reviewed Rhythm: sinus rhythm QRS axis: normal Clinical Impression: normal ECG Assessment & Plan Medical Decision Making MDM 64-year-old female arrived to the ED with atypical sounding chest pain. D-dimer noted mildly elevated. CT chest done to ensure no PE. The proceeding was negative. Patient noted relief with Protonix and GI cocktail. Less likely to be ACS/cardiac in origin. Patient stable for discharge home outpatient cardiac referral given. Assessment & Plan Final Impression: (1) Gastritis (2) Atypical chest pain Depart Disposition: HOME, SELF-CARE Last Vital Signs Date Time Temp Pulse Resp B/P (MAP) Pulse Ox O2 Delivery O2 Flow Rate FiO2 02/07/20 13:29 98.1 91 18 120/91 100 Room Air Home Meds Active Scripts Pantoprazole Sodium* (PROTONIX) 40 Mg Tablet.dr, 40 MG PO DAILY, #30 TAB Prov:CRISTAL ELIZONDO, 02/07/20 Mag Hydrox/Al Hydrox/Simeth (MAALOX MAXIMUM STRENGTH SUSP) 355 Ml Oral.susp, 15 ML PO Q6H PRN for GI UPSET, #120 ML Prov:CRISTAL ELIZONDO, 02/07/20 Reported Medications Acebutolol Hcl (ACEBUTOLOL HCL) 200 Mg Capsule, 200 MG PO DAILY, CAP 02/14/15 Lovastatin (LOVASTATIN) 20 Mg Tablet, 20 MG PO DAILY 02/14/15 [[place] 3] No Conflict Check, PO 02/14/15 [Nitamin B 12] No Conflict Check, PO 02/14/15 [Calcium] No Conflict Check, 600 MG PO DAILY 02/14/15 Fenofibrate,Micronized (Fenofibrate) 67 Mg Capsule, 160 QD 12/28/10 Metformin Hcl (Metformin Hcl Er) 500 Mg Tab.sr.24h, BID 12/28/10 Lisinopril/Hydrochlorothiazide (Lisinopril-Hctz 20-12.5 Mg Tab) 1 Each Tablet, 20 MG QD 12/28/10 Medications in the ED Pantoprazole Sodium 40 mg NOW STAT IV Last administered on 02/07/20at 13:27; Admin Dose 40 MG; Start 02/07/20 at 13:00; Stop 02/07/20 at 13:08; Status DC Belladonna Alkaloids/ Phenobarbital 5 ml ONCE ONCE PO Last administered on 02/07/20at 13:27; Admin Dose 5 ML; Start 02/07/20 at 13:00; Stop 02/07/20 at 13:07; Status DC Sodium Chloride 50 ml @ STK-MED ONCE .ROUTE ; Start 02/07/20 at 14:33; Stop 02/07/20 at 14:26; Status DC Iopamidol 74,000 mg STK-MED ONCE INJ ; Start 02/07/20 at 14:33; Stop 02/07/20 at 14:27; Status DC CRISTAL ELIZONDO, Feb 07, 2020 15:06
--- NOTE | 2020-02-07 15:09 | Diagnostic Imaging Report ---
CT of the chest, with contrast, 02/07/2020. History: Chest pain. Comparison: Chest x-ray 02/07/2020. Technique: Multidetector thin collimation CT scanning of the chest was performed from the level of the apices to the upper abdomen during the pulmonary arterial phase, after intravenous administration of contrast. Coronal and sagittal MIP reformations were obtained. RADIATION DOSE: Total DLP: 366 mGy*cm Dose modulation, iterative reconstruction, and/or weight based adjustment of the mA/kV was utilized to reduce the radiation dose to as low as reasonably achievable. Discussion: Chest: The pulmonary arteries are well-opacified without evidence of filling defect or vessel cut off. The main pulmonary artery is normal in size measuring 2.2 cm in diameter. The heart and aorta are normal in size. Thyroid is unremarkable. There is no axillary or mediastinal adenopathy. There is bibasilar dependent atelectasis. No evidence of consolidation, mass, or effusion. Limited evaluation of the upper abdomen shows normal bilateral adrenal glands. Bones and soft tissues: No acute abnormality. Mild degenerative changes are present throughout the thoracic spine. IMPRESSION: No evidence of acute pulmonary embolus or other pulmonary abnormality. Signed by: Jonathan Barragan on 02/07/2020 3:06 PM
[2020-02-07] MEDS ORDERED: MAALOX MAXIMUM355 ML PO (15:23)
[2020-02-07] MEDS ORDERED: PANTOPRAZOLE SO40 MG PO (15:23)
[2020-02-07 15:58] VITALS: BP 133/75
== END 2020-02-07 16:05 | disposition home or self-care (01) ==
LOC: ER 13:00
DX: R07.89 Other chest pain (principal); K29.70 Gastritis, unspecified, without bleeding; R10.13 Epigastric pain; I10 Essential (primary) hypertension; E11.9 Type 2 diabetes mellitus without complications; E78.5 Hyperlipidemia, unspecified; K21.9 Gastro-esophageal reflux disease without esophagitis
CPT/HCPCS: 36415; 71045; 71260; 80053; 82550; 82553; 84484; 85025; 85379; 93005; 99284; C9113; Q9967

== ENCOUNTER 2020-10-04 21:29 | Emergency (ER) | payer MEDICARE, OTHER ==
[~2020-10-04] VITALS: Ht 154.9 cm; Wt 59.0 kg
[~2020-10-04 21:29] MED LIST changes: +MAALOX MAXIMUM355 ML PO; +PANTOPRAZOLE SO40 MG PO
[2020-10-04] MEDS ORDERED: TETANUS/DIPHTHERIA TOX ADULT 0.5 ML SYR IM ONE (22:30)
[2020-10-04] MEDS ORDERED: ACETAMINOPHEN 325 MG TAB PO ONE (23:00)
[2020-10-04] MEDS ORDERED: ACETAMINOPHEN 325 MG TAB ONE (23:06)
== END 2020-10-04 23:21 | disposition home or self-care (01) ==
LOC: ER 21:49
DX: S91.052A Open bite, left ankle, initial encounter (principal); W54.0XXA Bitten by dog, initial encounter; Y93.01 Activity, walking, marching and hiking; Y92.89 Other specified places as the place of occurrence of the external cause; I10 Essential (primary) hypertension; E11.9 Type 2 diabetes mellitus without complications; E78.5 Hyperlipidemia, unspecified; K21.9 Gastro-esophageal reflux disease without esophagitis; E78.00 Pure hypercholesterolemia, unspecified
CPT/HCPCS: 90471; 90714; 99283